=== PATIENT | male | born 1955 | race Caucasian/White ===

== ENCOUNTER 2017-06-30 19:37 | Observation (INO) | payer OTHER, SELFPAY ==
[2017-06-30 19:38] VITALS: BP 143/31; PULSE 71; RESP 20; TEMP 35.7; O2SAT 97; BMI 29.4
[2017-06-30 19:39] VITALS: BMI 29.4
--- NOTE | 2017-06-30 19:42 | CT_ITS ---
CT head/brain wo con HISTORY: Dizziness with nausea and vomiting ITS.REASON: C/O DIZZINESS ORDERING PHYSICIAN: Vinay Valente MD PATIENT AGE: 61 years COMPARISON: None TECHNIQUE: Axial images obtained without contrast. Brain and bone windows reviewed. FINDINGS: No midline shift, mass effect, intracranial hemorrhage, hydrocephalus, or extra-axial fluid collection is evident. The calvarium has an unremarkable appearance. No mastoid effusion. Mucosal thickening involves the ethmoid and maxillary sinuses. A retention cyst is present in right sphenoid sinus at 16 mm. No sinus air-fluid levels.. IMPRESSION: 1. No acute intracranial findings. 2. Sinus disease.
--- NOTE | 2017-06-30 19:42 | XR_ITS ---
XR chest AP HISTORY: ITS.REASON: C/O DIZZINESS ORDERING PHYSICIAN: Vinay Valente MD PATIENT AGE: 61 years COMPARISON: None available FINDINGS: There are low lung volumes. Unremarkable cardiovascular structures. No lobar consolidation or collapse. There is increased density paratracheal region on both sides which may be due to overlying vasculature from the AP and supine positioning. Upright PA and lateral chest may confirm. There is a calcified granuloma in the left lung base. Old right clavicular fracture. IMPRESSION: No acute finding. See above for details
[2017-06-30 20:17] LABS: Basophils % 0.4 % (0.1-2.0); Eosinophils # 0.1 K/mm3 (0.0-0.4); Eosinophils % 1.1 % (0.1-12.0); Hematocrit 38.2 % (42.0-52.0); Hemoglobin 12.9 g/dL (14.1-18.0); Lymphocytes # 2.6 K/mm3 (0.7-4.5); Lymphocytes % 23.2 K/mm3 (10-50); Mean Corpuscular HGB Conc 33.6 g/dL (31.8-35.4); Mean Corpuscular Hemoglobin 28.7 pg (27.0-31.2); Mean Corpuscular Volume 85.2 fl (80-94); Mean Platelet Volume 7.5 fl (7.4-10.4); Monocytes # 0.7 K/mm3 (0.1-1.0); Monocytes % 6.2 % (1.7-9.3); Neutrophils # 7.8 K/mm3 (1.8-7.8); Neutrophils % 69.1 % (37.0-80.0); Platelet Count 238 K/mm3 (142-424); Red Blood Count 4.48 M/mm3 (4.60-6.20); Red Cell Distribution Width 12.8 % (11.5-17.5); White Blood Count 11.3 K/mm3 (4.8-10.8)
[2017-06-30 20:35] LABS: Alanine Aminotransferase 39 U/L (12-78); Albumin Level 3.9 gm/dL (3.4-5.0); Albumin/Globulin Ratio 1.2 (1.1-1.8); Alkaline Phosphatase 61 U/L (46-116); Amylase 36 U/L (25-125); Anion Gap 15.8 mEq/L (5-15); Aspartate Amino Transferase 16 U/L (15-37); Bilirubin,Total 0.3 mg/dL (0.2-1.0); Blood Urea Nitrogen 16 mg/dL (7-18); CKMB Relative Index 2.1 U/L (0-4.0); Calcium 8.7 mg/dL (8.5-10.1); Carbon Dioxide 25 mmol/L (21.0-32.0); Chloride 104 mmol/L (98-107); Creatine Kinase 126 U/L (39-308); Creatine Kinase MB 2.7 mg/ml (0.0-3.6); Creatinine Clearance Estimated 98 mL/min (0-300); Creatinine,Serum 1.05 mg/dL (0.70-1.30); Estimated Glomerular Filt Rate 72 ml/min (>60); GFR (African American) 87 ML/MIN (>60); Globulin 3.2 gm/dl (1.3-3.2); Glucose 125 mg/dL (74-106); Lipase 206 u/L (73-393); Potassium 3.8 mmoL/L (3.5-5.1); Sodium 141 mmol/L (136-145); Total Protein,Serum 7.1 gm/dL (6.4-8.2); Troponin I < 0.02 ng/ml (0.00-0.06)
--- NOTE | 2017-06-30 20:37 | PC.NURSE ---
back from radiology per stretcher
--- NOTE | 2017-06-30 20:57 | HMH.EDDIZZ ---
ED Disposition Clinical Impression: Vertigo Disposition: Admitted as Observation Condition on Discharge: Good Referrals: Vinay Valente MD [Primary Care Provider] - - Critical Care Critical Care Time: No Attestation: On 06/30/17, the high probability of a clinically significant, sudden or life threatening deterioration of the following system(s) required my full and direct attention, intervention and personal management. The time I documented below is in addition to time spent performing reported procedures but includes the following listed in this critical care notation. Medical Decision Making - Medical Records Medical records reviewed: Yes: I reviewed the patient's medical records. Vital Signs: 06/30/17 19:38 Temperature 96.2 F L Temperature Source Temporal Artery Scan Pulse Rate [Right Brachial] 71 Respiratory Rate 20 Blood Pressure [Right Arm] 143/31 Blood Pressure Mean [Right Arm] 68 Blood Pressure Source [Right Arm] Automatic Cuff Blood Pressure Position [Right Arm] Supine 02 Sat by Pulse Oximetry 97 Oxygen Delivery Method Room Air - Lab Data Lab Results 06/30/17 19:55: WBC 11.3 H, RBC 4.48 L, Hgb 12.9 L, Hct 38.2 L, MCV 85.2, MCH 28.7, MCHC 33.6, RDW 12.8, Plt Count 238, MPV 7.5, Neut % (Auto) 69.1, Lymph % (Auto) 23.2, [place] % (Auto) 6.2, Eos % (Auto) 1.1, Baso % (Auto) 0.4, Neut # (Auto) 7.8, Lymph # (Auto) 2.6, [place] # (Auto) 0.7, Eos # (Auto) 0.1, Baso # (Auto) 0.0 06/30/17 19:55: Sodium 141, Potassium 3.8, Chloride 104, Carbon Dioxide 25, Anion Gap 15.8 H, BUN 16, Creatinine 1.05, Estimated Creat Clear 98, Estimated GFR 72, Est GFR ( Amer) 87, Glucose 125 H, Calcium 8.7, Total Bilirubin 0.3, AST 16, ALT 39, Alkaline Phosphatase 61, Total Creatine Kinase 126, CK-MB (CK-2) 2.7, CK-MB (CK-2) Rel Index 2.1, Troponin I < 0.02, Total Protein 7.1, Albumin 3.9, Globulin 3.2, Albumin/Globulin Ratio 1.2, Amylase 36, Lipase 206 06/30/17 20:05: Influenza Type A Ag Negative, Influenza Type B Ag Negative Result diagrams: 06/30/17 19:55 06/30/17 19:55 Orders (Tests/Meds): ED MEDICATIONS Generic Name Dose Route Start Last Admin Trade Name Freq PRN Reason Stop Dose Admin Sodium Chloride 1,000 mls @ 999 mls/hr 06/30/17 21:00 06/30/17 20:53 Sod Chloride 0.9% 1000ml Bag IV 06/30/17 22:00 999 mls/hr .Q1H1M VALERIA Administration Discontinued Medications Generic Name Dose Route Start Last Admin Trade Name Freq PRN Reason Stop Dose Admin Promethazine HCl 12.5 mg 06/30/17 19:59 06/30/17 20:05 Phenergan 25mg/Ml 1ml Vial IV 06/30/17 20:00 12.5 mg ONCE ONE Administration Sodium Chloride 25 ml 06/30/17 19:59 06/30/17 20:05 Sod Chloride 0.9% 25ml Bag IV 06/30/17 20:00 25 ml ONCE ONE Administration ORDERS Category Date Time Status CT head/brain wo con Stat Cat Scan 06/30/17 19:42 Taken XR chest AP Stat Exams 06/30/17 19:42 Taken ECG Request by /Hanna Stat Y 06/30/17 19:42 Ordered - Radiology Data #1 Image(s): Chest Image Reviewed: Yes I reviewed the patient's radiology image Preliminary Findings: Abnormal (nonspecific) - CT Data CT Scan: Head Time Received: 21:[address] Reviewed: Yes: I have viewed the radiologist's interpretation Preliminary Findings: Normal/NAD - ECG Data Tracing #1 I reviewed this ECG and interpreted as documented below: Arrhythmias present: other Ischemic changes: non-specific ST-T wave changes (inverted p wave ) - Andrea Inquiry Pt receiving controlled substance: No Dizzy HPI - General Chief Complaint: Dizziness Stated Complaint: DIZZINESS AND VOMITING Time Seen by Provider: 06/30/17 20:57 Mode of Arrival: EMS Source of Information: Patient, Spouse, Medical Record Limitations: No Limitations Description of Symptoms (Recalled from ER Triage Doc. by RN): VOFOUND LYING FLAT IN FIELD AFTER FEEDING COWS ANDPUSHING JOSE HAY ROLL. UNABLE TO GET UP. C/O DIZZINESS AND NAUSEA AND VOMITING - History of Pres
--- NOTE | 2017-06-30 21:00 | ED_ITS ---
ED Disposition Clinical Impression: Vertigo Disposition: Admitted as Observation Condition on Discharge: Good Referrals: Vinay Valente MD [Primary Care Provider] - - Critical Care Critical Care Time: No Attestation: On 06/30/17, the high probability of a clinically significant, sudden or life threatening deterioration of the following system(s) required my full and direct attention, intervention and personal management. The time I documented below is in addition to time spent performing reported procedures but includes the following listed in this critical care notation. Medical Decision Making - Medical Records Medical records reviewed: Yes: I reviewed the patient's medical records. Vital Signs: 06/30/17 19:38 Temperature 96.2 F L Temperature Source Temporal Artery Scan Pulse Rate [Right Brachial] 71 Respiratory Rate 20 Blood Pressure [Right Arm] 143/31 Blood Pressure Mean [Right Arm] 68 Blood Pressure Source [Right Arm] Automatic Cuff Blood Pressure Position [Right Arm] Supine 02 Sat by Pulse Oximetry 97 Oxygen Delivery Method Room Air - Lab Data Lab Results 06/30/17 19:55: WBC 11.3 H, RBC 4.48 L, Hgb 12.9 L, Hct 38.2 L, MCV 85.2, MCH 28.7, MCHC 33.6, RDW 12.8, Plt Count 238, MPV 7.5, Neut % (Auto) 69.1, Lymph % ( Auto) 23.2, [place] % (Auto) 6.2, Eos % (Auto) 1.1, Baso % (Auto) 0.4, Neut # (Auto ) 7.8, Lymph # (Auto) 2.6, [place] # (Auto) 0.7, Eos # (Auto) 0.1, Baso # (Auto) 0.0 06/30/17 19:55: Sodium 141, Potassium 3.8, Chloride 104, Carbon Dioxide 25, Anion Gap 15.8 H, BUN 16, Creatinine 1.05, Estimated Creat Clear 98, Estimated GFR 72, Est GFR ( Amer) 87, Glucose 125 H, Calcium 8.7, Total Bilirubin 0.3, AST 16, ALT 39, Alkaline Phosphatase 61, Total Creatine Kinase 126, CK-MB ( CK-2) 2.7, CK-MB (CK-2) Rel Index 2.1, Troponin I < 0.02, Total Protein 7.1, Albumin 3.9, Globulin 3.2, Albumin/Globulin Ratio 1.2, Amylase 36, Lipase 206 06/30/17 20:05: Influenza Type A Ag Negative, Influenza Type B Ag Negative Result diagrams: 06/30/17 19:55 06/30/17 19:55 Orders (Tests/Meds): ED MEDICATIONS Generic Name Dose Route Start Last Admin Trade Name Freq PRN Reason Stop Dose Admin Sodium Chloride 1,000 mls @ 999 mls/hr 06/30/17 21:00 06/30/17 20:53 Sod Chloride 0.9% 1000ml Bag IV 06/30/17 22:00 999 mls/hr .Q1H1M VALERIA Administration Discontinued Medications Generic Name Dose Route Start Last Admin Trade Name Freq PRN Reason Stop Dose Admin Promethazine HCl 12.5 mg 06/30/17 19:59 06/30/17 20:05 Phenergan 25mg/Ml 1ml Vial IV 06/30/17 20:00 12.5 mg ONCE ONE Administration Sodium Chloride 25 ml 06/30/17 19:59 06/30/17 20:05 Sod Chloride 0.9% 25ml Bag IV 06/30/17 20:00 25 ml ONCE ONE Administration ORDERS Category Date Time Status CT head/brain wo con Stat Cat Scan 06/30/17 19:42 Taken XR chest AP Stat Exams 06/30/17 19:42 Taken ECG Request by /Hanna Stat Y 06/30/17 19:42 Ordered - Radiology Data #1 Image(s): Chest Image Reviewed: Yes I reviewed the patient's radiology image Preliminary Findings: Abnormal (nonspecific) - CT Data CT Scan: Head Time Received: 21:[address] Reviewed: Yes: I have viewed the radiologist's interpretation Preliminary Findings: Normal/NAD - ECG Data *
[2017-06-30 21:19] VITALS: BP 137/94; PULSE 64; RESP 18; O2SAT 99
[2017-06-30 21:41] VITALS: O2SAT 99
[2017-06-30 21:42] LABS: Microscopic, Urine URINE MICROSCOPIC (MICROSCOPIC)
[2017-06-30 21:43] LABS: Appearance,Urine CLEAR (Clear); Bilirubin,Urine Negative (Negative); Blood, Urine Negative (Negative); Color,Urine YELLOW (Yellow); Glucose,Urine (UA) Negative (Negative); Ketones,Urine Negative (Negative); Leukocyte Esterase,Urine Negative (Negative); Nitrate,Urine Negative (Negative); Protein,Urine Negative (Negative); Urobilinogen,Urine 0.2 EU/dl (0.2)
[2017-06-30 21:50] VITALS: BP 138/77; PULSE 66; RESP 18; TEMP 36.3; O2SAT 96; BMI 29.5
[2017-06-30 22:01] LABS: T4 (Thyroxine) 6.1 ug/dl (4.7-13.3); Thyroid Stimulating Hormone 3.53 uIU/ml (0.358-3.740)
[2017-06-30 22:05] VITALS: PULSE 70
[2017-06-30 22:28] LABS: Bacteria,Urine Trace /lpf; Mucus,Urine 3+ /lpf; Squamous Epithelial Cell,Urine Occasional #/hpf (0-5)
[2017-06-30 23:27] LABS: Troponin I < 0.02 ng/ml (0.00-0.06)
[2017-07-01] VITALS: BP 108/70; PULSE 60; PULSE 68; RESP 18; TEMP 36.7; O2SAT 99
[2017-07-01 04:00] VITALS: BP 126/82; PULSE 80; PULSE 91; RESP 18; TEMP 36.7; O2SAT 98
[2017-07-01 06:43] LABS: Basophils % 0.4 % (0.1-2.0); Eosinophils # 0.1 K/mm3 (0.0-0.4); Eosinophils % 1.1 % (0.1-12.0); Hematocrit 38.5 % (42.0-52.0); Hemoglobin 13.2 g/dL (14.1-18.0); Lymphocytes # 3.3 K/mm3 (0.7-4.5); Lymphocytes % 29.3 K/mm3 (10-50); Mean Corpuscular HGB Conc 34.2 g/dL (31.8-35.4); Mean Corpuscular Hemoglobin 29.1 pg (27.0-31.2); Mean Corpuscular Volume 85.2 fl (80-94); Mean Platelet Volume 7.5 fl (7.4-10.4); Monocytes # 0.6 K/mm3 (0.1-1.0); Monocytes % 5.3 % (1.7-9.3); Neutrophils # 7.3 K/mm3 (1.8-7.8); Platelet Count 233 K/mm3 (142-424); Red Blood Count 4.52 M/mm3 (4.60-6.20); Red Cell Distribution Width 12.8 % (11.5-17.5); White Blood Count 11.3 K/mm3 (4.8-10.8)
--- NOTE | 2017-07-01 06:59 | PC.NURSE ---
NO COMPLAINTS STATED. A&OX3 BUT AGITATION NOTED ON ARRIVAL TO UNIT. PT WOULD STATE I AM JUST GOING TO LEAVE. I AM READY TO GO HOME. WHEN NURSING STAFF WOULD PROVIDE PT WITH CARE. THE STATED HE USUALLY GOES TO BED AROUND 9. DURING ADMISSION, PT STATED I HAVE TO PEE. RN INSTRUCTED IT WAS BEST TO USE URINAL OR BEDSIDE COMMODE R/T C/O DIZZINESS, PT STATED I DO NOT CARE, I AM GOING TO THE BATHROOM, NOW LEAVE ME ALONE. NURSING STAFF AND FAMILY FOLLOWED PT INTO BATHROOM. ON AMBULATION PT NOTED UNSTEADY ON FEET AND SWAYING WHILE TRYING TO STAND TO URINATE. STAFF AND ASSISTED PT BACK TO BED AND RN REINFORCED PT SAFETY AND TO USE URINAL/BSC FOR TOILETING. WAS ALSO INSTRUCTED TO COMPLY WITH NOTIFYING STAFF IF ATTEMPTS TO GET OOB WERE MADE, INDICATED UNDERSTANDING. WHILE ASSESSING PT, PT WAS INSTRUCTED TO OPEN EYES TO ASSESS PERRLA, RN ASKED PT 3 TIMES TO OPEN EYES AND PT KEPT THEM CLOSED. RN STATED IT IS IMPORTANT THAT I ASSESS YOUR EYES BECAUSE YOU ARE HERE FOR NEURO PROBLEMS AND THAT IS PART OF A NEURO ASSESSMENT. PT WOULD NOT FULLY OPEN EYES SO RN ASSISTED WITH OPENING EYES ENOUGH TO DO AN APPROPIATE ASSESSEMENT. PT USED URINAL TO VOID FOR REMAINDER OF SHIFT AND DID NOT ATTEMPT TO GET OOB W/O STAFF ASSISTANCE. NSR NOTED PER CADI[facility]. VSS. WILL CONTINUE TO MONITOR.
--- NOTE | 2017-07-01 07:03 | CA_ITS ---
PROCEDURE: 2-D echo Doppler INDICATIONS FOR THE TEST: Chest pain COPD Heart Murmur Tobacco Smoking Palpitations Fatigue Syncope Edema Hypertension Diabetes Mellitus Rheumatic Fever SOB GALINDO ObesityXHyperlipidemiaX Family History HD Additional History VERTIGO,DIZZINESS PATIENT INFORMATION HEIGHT: 70 WEIGHT:205 GENDER: Male B/P:110/70 2-D/M-MODE INTERPRETATION: 2-D MEASUREMENTS OBSERVED VALUES IN CMS Right Ventricular Dimension (RVDd) 2.5 Interventricular Septum (Thickness)(IVsd) 1.0 Left Ventricular Internal Dimensions(LVIDd) 4.5 Left Ventricular Posterior Wall (Thickness)(LVPWd) 1.0 Aortic Root 3.7 Aortic Cusp Separation 1.0 Left Atrial Dimensions (LAD) 2.4 2D 1. Left atrium is upper limit of the normal size, left ventricle is normal size, there appears to be mild qualitative concentric left ventricular hypertrophy, visually estimated ejection fraction of 55% with no obvious regional wall motion abnormality. 2. The right atrium is normal size, right ventricle is qualitatively mildly enlarged with normal contractility. 3. The aortic valve is thickened and calcified leaflet continue to display mobility. 4. The mitral and tricuspid valves are grossly normal. 5. The pulmonic valve is poorly visualized. 6. No significant pericardial effusion noted. DOPPLER INTERROGATION: Doppler interrogation of the aortic, mitral and tricuspid valve reveals presence of mild mitral and tricuspid regurgitation, calculated right ventricular systolic pressure is 32 mmHg, aortic outflow velocities mildly increased does not represent significant aortic stenosis, there is no aortic insufficiency. Diastolic parameters are inconclusive CONCLUSION: 1. Normal left ventricular size, mild qualitative concentric left ventricular hypertrophy, visually estimated ejection fraction 55% with no obvious regional wall motion abnormality, diastolic parameters are inconclusive. 2. Thickened and calcified aortic valve without Doppler evidence of significant aortic stenosis aortic insufficiency. 3. Mild mitral and tricuspid regurgitation, calculated right ventricular systolic pressure is 32 mmHg consistent with mild pulmonary hypertension. 4. No significant pericardial effusion noted.
[2017-07-01 07:04] LABS: Anion Gap 13.9 mEq/L (5-15); Blood Urea Nitrogen 14 mg/dL (7-18); Carbon Dioxide 25 mmol/L (21.0-32.0); Chloride 107 mmol/L (98-107); Chol/HDL Ratio 5.2 (1-3.5); Cholesterol 203 mg/dL (140-200); Creatinine Clearance Estimated 106 mL/min (0-300); Creatinine,Serum 0.98 mg/dL (0.70-1.30); Estimated Glomerular Filt Rate 78 ml/min (>60); GFR (African American) 94 ML/MIN (>60); Glucose 103 mg/dL (74-106); HDL Cholesterol 39 mg/dL (27-67); LDL Cholesterol 124 mg/dL (0-130); Potassium 3.9 mmoL/L (3.5-5.1); Sodium 142 mmol/L (136-145); Triglycerides 200 mg/dL (30-200); VLDL Cholesterol 40 mg/dL (0-40)
--- NOTE | 2017-07-01 07:17 | HMH.PHAVTE ---
[facility] [place] Pharmacy VTE Monitoring - Patient Demographics Admission date: 06/30/17 Report Date: 07/01/17 Time: 07:17 Allergies/Adverse Reactions: Patient Allergies No Known Allergies Allergy (Verified 06/30/17 13:29) Height: 1.78 m Weight: 93.416 kg Patient Problems: Current Active Problems Vertigo (Acute) - VTE Risk Labs: VTE Related Lab Results Hgb 13.2 g/dL (14.1-18.0) L 07/01/17 06:03 Hct 38.5 % (42.0-52.0) L 07/01/17 06:03 Plt Count 233 K/mm3 (142-424) 07/01/17 06:03 BUN 14 mg/dL (7-18) 07/01/17 06:03 Creatinine 0.98 mg/dL (0.70-1.30) 07/01/17 06:03 Estimated Creat Clear 106 mL/min (0-300) 07/01/17 06:03 VTE Score: 3 VTE Risk Level: Low Risk - Prophylaxis VTE Prophylaxis Ordered?: Yes Types of VTE Prophylaxis: TEDS Knee High Location of Applied Device: Bilateral Lower Extremeties - VTE Diagnosis Confirmed Treatment or plan recommended: Continue Current Treatment
--- NOTE | 2017-07-01 07:35 | PC.NURSE ---
REPORT GIVEN TO Margie SMILEY W/C
[2017-07-01 08:00] VITALS: PULSE 70
--- NOTE | 2017-07-01 08:12 | HMH.CARDCON2 ---
History of Present Illness Consult date: 07/01/17 Requesting physician: Vinay Valente (Consult for dizziness) Chief complaint: Dizziness History of present illness: 61 yo WM with history of hypercholesterolemia, remote tobacco use and FH of CAD (mother and sister) was unrolling a bale of hay when he developed sudden dizziness to the point of needing to lie down. Denies any chest pain, pressure, tightness or palpitations. No recent fever, chills, vomiting or diarrhea. He did experience nausea and vomiting due to the recurrent dizziness last night. He denies any near syncope or syncope symptoms. He came to the ER for evaluation and was admitted. Troponins have returned normal. EKG shows ectopic atrial vs junctional escape otherwise unremarkable. Cardiology consulted for evaluation. Review of Systems - Review of Systems Review of systems:: pertinent systems reviewed and negative unless documented below - *Cardiovascular Denies chest pain with activity, Denies shortness of breath with activity - *Respiratory Denies shortness of breath, Denies shortness of breath with activity - *Gastrointestinal Reports nausea - *Genitourinary Denies blood in urine - *Musculoskeletal Denies joint pain - *Neurologic Reports dizziness, Denies seizure-like activity [facility] History Medical History: Reports:: Heart Murmur, Hyperlipidemia Denies:: Cancer, Diabetes Mellitus Type 1, Diabetes Mellitus Type 2, MRSA Other Surgeries: Yes: Appendectomy, Colonoscopy, Other (Liver Biopsy, POLYPS REMOVED) Amputation: No Fractures: No - *Social History Educational Level: Attended High School Smoking Status: Never smoker Tobacco Type: cigarettes Alcohol Intake: never Alcohol Intake Frequency:: holidays/special occasions only Occupational Status: employed Household Members: significant other - Psychiatric History Expresses thoughts of harming self/others: None Suicide Plan Description: No Plan *Family Hx:: Stroke, Hypertension, Diabetes Meds Home Medications Medication Instructions Recorded Confirmed Type lovastatin 40 mg tablet 40 mg PO HS 06/14/17 07/01/17 History Allergies Allergy/AdvReac Type Severity Reaction Status Date / Time No Known Allergies Allergy Verified 06/30/17 13:29 Exam Vital signs and Labs for Last 24 Hours: Temp Pulse Resp BP Pulse Ox 98.1 F 91 H 18 126/82 98 07/01/17 04:00 07/01/17 04:00 07/01/17 04:00 07/01/17 04:00 07/01/17 04:00 Laboratory Results - last 24 hr 06/30/17 23:00: Troponin I < 0.02 07/01/17 06:03: WBC 11.3 H, RBC 4.52 L, Hgb 13.2 L, Hct 38.5 L, MCV 85.2, MCH 29.1, MCHC 34.2, RDW 12.8, Plt Count 233, MPV 7.5, Neut % (Auto) 64.0, Lymph % (Auto) 29.3, [place] % (Auto) 5.3, Eos % (Auto) 1.1, Baso % (Auto) 0.4, Neut # (Auto) 7.3, Lymph # (Auto) 3.3, [place] # (Auto) 0.6, Eos # (Auto) 0.1, Baso # (Auto) 0.0 07/01/17 06:03: Sodium 142, Potassium 3.9, Chloride 107, Carbon Dioxide 25, Anion Gap 13.9, BUN 14, Creatinine 0.98, Estimated Creat Clear 106, Estimated GFR 78, Est GFR ( Amer) 94, Glucose 103, Magnesium 2.0, Triglycerides 200, Cholesterol 203 H, LDL Cholesterol 124, VLDL Cholesterol 40, HDL Cholesterol 39, Cholesterol/HDL Ratio 5.2 H I & O for Last 24 hours: Intake & Output 06/28/17 06/29/17 06/30/17 07/01/17 11:59 11:59 11:59 11:59 Intake Total 503 / 503 Output Total 450 / 450 Balance 53 / 53 Weight 205 lb 15.162 oz - *Routine Neck Exam Absent: JVD, carotid bruit - *Routine Respiratory Exam Present: CTA bilaterally - *Routine Cardiovascular Exam Present: RRR, murmur. Absent: gallop, rubs - *Routine Abdominal Exam Present: soft. Absent: tenderness - *Routine Extremities Exam Absent: edema - *Routine Neurological Exam Present: moving all extremities Results 07/01/17 06:03 07/01/17 06:03 Cardiac Enzymes 06/30/17 Range/Units 23:00 Troponin I < 0.02 (0.00-0.06) ng/ml Lipids 07/01/17 Range/Units
[2017-07-01 08:17] VITALS: O2SAT 98
--- NOTE | 2017-07-01 08:17 | P.CONS_ITS ---
History of Present Illness Consult date: 07/01/17 Requesting physician: Vinay Valente (Consult for dizziness) Chief complaint: Dizziness History of present illness: 61 yo WM with history of hypercholesterolemia, remote tobacco use and FH of CAD (mother and sister) was unrolling a bale of hay when he developed sudden dizziness to the point of needing to lie down. Denies any chest pain, pressure, tightness or palpitations. No recent fever, chills, vomiting or diarrhea. He did experience nausea and vomiting due to the recurrent dizziness last night. He denies any near syncope or syncope symptoms. He came to the ER for evaluation and was admitted. Troponins have returned normal. EKG shows ectopic atrial vs junctional escape otherwise unremarkable. Cardiology consulted for evaluation. Review of Systems - Review of Systems Review of systems:: pertinent systems reviewed and negative unless documented below - *Cardiovascular Denies chest pain with activity, Denies shortness of breath with activity - *Respiratory Denies shortness of breath, Denies shortness of breath with activity - *Gastrointestinal Reports nausea - *Genitourinary Denies blood in urine - *Musculoskeletal Denies joint pain - *Neurologic Reports dizziness, Denies seizure-like activity [facility] History Medical History: Reports:: Heart Murmur, Hyperlipidemia Denies:: Cancer, Diabetes Mellitus Type 1, Diabetes Mellitus Type 2, MRSA Other Surgeries: Yes: Appendectomy, Colonoscopy, Other (Liver Biopsy, POLYPS REMOVED) Amputation: No Fractures: No - *Social History Educational Level: Attended High School Smoking Status: Never smoker Tobacco Type: cigarettes Alcohol Intake: never Alcohol Intake Frequency:: holidays/special occasions only Occupational Status: employed Household Members: significant other - Psychiatric History Expresses thoughts of harming self/others: None Suicide Plan Description: No Plan *Family Hx:: Stroke, Hypertension, Diabetes Meds Home Medications Medication Instructions Recorded Confirmed Type lovastatin 40 mg tablet 40 mg PO HS 06/14/17 07/01/17 History Allergies Allergy/AdvReac Type Severity Reaction Status Date / Time No Known Allergies Allergy Verified 06/30/17 13:29 Exam Vital signs and Labs for Last 24 Hours: Temp Pulse Resp BP Pulse Ox 98.1 F 91 H 18 126/82 98 07/01/17 04:00 07/01/17 04:00 07/01/17 04:00 07/01/17 04:00 07/01/17 04:00 Laboratory Results - last 24 hr 06/30/17 23:00: Troponin I < 0.02 07/01/17 06:03: WBC 11.3 H, RBC 4.52 L, Hgb 13.2 L, Hct 38.5 L, MCV 85.2, MCH 29.1, MCHC 34.2, RDW 12.8, Plt Count 233, MPV 7.5, Neut % (Auto) 64.0, Lymph % ( Auto) 29.3, [place] % (Auto) 5.3, Eos % (Auto) 1.1, Baso % (Auto) 0.4, Neut # (Auto ) 7.3, Lymph # (Auto) 3.3, [place] # (Auto) 0.6, Eos # (Auto) 0.1, Baso # (Auto) 0.0 07/01/17 06:03: Sodium 142, Potassium 3.9, Chloride 107, Carbon Dioxide 25, Anion Gap 13.9, BUN 14, Creatinine 0.98, Estimated Creat Clear 106, Estimated GFR 78, Est GFR ( Amer) 94, Glucose 103, Magnesium 2.0, Triglycerides 200 , Cholesterol 203 H, LDL Cholesterol 124, VLDL Cholesterol 40, HDL Cholesterol 39, Cholesterol/HDL Ratio 5.2 H I & O for Last 24 hours: Intake & Output 06/28/17 06/29/17 06/30/17 07/01/17 11:59 11:59 11:59 11:59 Intake Total 503 / 503 Output Total 450 / 450 Balance 53 / 53 Weight 20
[2017-07-01 08:28] VITALS: BP 147/87; PULSE 71; RESP 18; TEMP 36.7; O2SAT 95
--- NOTE | 2017-07-01 09:03 | HMH.HPDC ---
General - General Admission date: 06/30/17 Discharge date: 07/01/17 *Admission Date: 06/30/17 *Chief complaint: dizzy *History of present illness: 61 yo WM with history of hypercholesterolemia, remote tobacco use and FH of CAD (mother and sister) was unrolling a bale of hay when he developed sudden dizziness to the point of needing to lie down. Denies any chest pain, pressure, tightness or palpitations. No recent fever, chills, vomiting or diarrhea. He did experience nausea and vomiting due to the recurrent dizziness last night. He denies any near syncope or syncope symptoms. He came to the ER for evaluation and was admitted. Troponins have returned normal. EKG shows ectopic atrial vs junctional escape otherwise unremarkable. Cardiology consulted for evaluation. [facility] History I have reviewed the patient's past medical history: Yes Medical History: Reports:: Heart Murmur, Hyperlipidemia Denies:: Cancer, Diabetes Mellitus Type 1, Diabetes Mellitus Type 2, MRSA Other Surgeries: Yes: Appendectomy, Colonoscopy, Other (Liver Biopsy, POLYPS REMOVED) Amputation: No Fractures: No - *Social History Educational Level: Attended High School Smoking Status: Never smoker Tobacco Type: cigarettes Alcohol Intake: never Alcohol Intake Frequency:: holidays/special occasions only Occupational Status: employed Household Members: significant other - Psychiatric History Expresses thoughts of harming self/others: None Suicide Plan Description: No Plan *Family Hx:: Stroke, Hypertension, Diabetes Review of Systems - Constitutional Denies body ache(s) - Eyes Denies blind spots, Denies blurry vision, Denies change in vision - ENT Reports dizziness, Denies abnormal hearing - *Cardiovascular Denies chest pain, Denies chest pain at rest, Denies chest pain with activity, Denies generalized swelling, Denies leg swelling - *Respiratory Denies change in phlegm color, Denies chest congestion, Denies cough - *Gastrointestinal Denies abdominal pain - *Genitourinary Denies difficulty urinating - *Musculoskeletal Denies abnormal walking - Integumentary/Breasts Denies rash - *Neurologic Reports dizziness, Denies seizure-like activity - Psychiatric Denies confusion, Denies depression, Denies difficulty concentrating, Denies sensing things others do not sense - Endocrine Denies cold intolerance - Hematologic/Lymphatic Denies easy bleeding - Allergic/Immunologic Denies GI upset with certain foods Exam Vital signs and Labs for Last 24 Hours: Temp Pulse Resp BP Pulse Ox 98.1 F 71 18 147/87 95 07/01/17 08:28 07/01/17 08:28 07/01/17 08:28 07/01/17 08:28 07/01/17 08:28 Laboratory Results - last 24 hr 06/30/17 23:00: Troponin I < 0.02 07/01/17 06:03: WBC 11.3 H, RBC 4.52 L, Hgb 13.2 L, Hct 38.5 L, MCV 85.2, MCH 29.1, MCHC 34.2, RDW 12.8, Plt Count 233, MPV 7.5, Neut % (Auto) 64.0, Lymph % (Auto) 29.3, [place] % (Auto) 5.3, Eos % (Auto) 1.1, Baso % (Auto) 0.4, Neut # (Auto) 7.3, Lymph # (Auto) 3.3, [place] # (Auto) 0.6, Eos # (Auto) 0.1, Baso # (Auto) 0.0 07/01/17 06:03: Sodium 142, Potassium 3.9, Chloride 107, Carbon Dioxide 25, Anion Gap 13.9, BUN 14, Creatinine 0.98, Estimated Creat Clear 106, Estimated GFR 78, Est GFR ( Amer) 94, Glucose 103, Magnesium 2.0, Triglycerides 200, Cholesterol 203 H, LDL Cholesterol 124, VLDL Cholesterol 40, HDL Cholesterol 39, Cholesterol/HDL Ratio 5.2 H I & O for Last 24 hours: Intake & Output 06/28/17 06/29/17 06/30/17 07/01/17 11:59 11:59 11:59 11:59 Intake Total 503 / 503 Output Total 775 / 775 Balance -272 / -272 Weight 205 lb 15.162 oz - Constitutional no acute distress - *Routine HEENT Exam Head: Present: normocephalic Eye: Present: PERRL ENT: Present: mucous membranes moist - *Routine Neck Exam Present: supple, full ROM - *Routine Respiratory Exam Present: CTA bilaterally - *Routine Cardiovascular Exam Present: RRR - *Routine Abdominal
--- NOTE | 2017-07-01 09:06 | P.SWB_ITS ---
General - General Admission date: 06/30/17 Discharge date: 07/01/17 *Admission Date: 06/30/17 *Chief complaint: dizzy *History of present illness: 61 yo WM with history of hypercholesterolemia, remote tobacco use and FH of CAD (mother and sister) was unrolling a bale of hay when he developed sudden dizziness to the point of needing to lie down. Denies any chest pain, pressure, tightness or palpitations. No recent fever, chills, vomiting or diarrhea. He did experience nausea and vomiting due to the recurrent dizziness last night. He denies any near syncope or syncope symptoms. He came to the ER for evaluation and was admitted. Troponins have returned normal. EKG shows ectopic atrial vs junctional escape otherwise unremarkable. Cardiology consulted for evaluation. [facility] History I have reviewed the patient's past medical history: Yes Medical History: Reports:: Heart Murmur, Hyperlipidemia Denies:: Cancer, Diabetes Mellitus Type 1, Diabetes Mellitus Type 2, MRSA Other Surgeries: Yes: Appendectomy, Colonoscopy, Other (Liver Biopsy, POLYPS REMOVED) Amputation: No Fractures: No - *Social History Educational Level: Attended High School Smoking Status: Never smoker Tobacco Type: cigarettes Alcohol Intake: never Alcohol Intake Frequency:: holidays/special occasions only Occupational Status: employed Household Members: significant other - Psychiatric History Expresses thoughts of harming self/others: None Suicide Plan Description: No Plan *Family Hx:: Stroke, Hypertension, Diabetes Review of Systems - Constitutional Denies body ache(s) - Eyes Denies blind spots, Denies blurry vision, Denies change in vision - ENT Reports dizziness, Denies abnormal hearing - *Cardiovascular Denies chest pain, Denies chest pain at rest, Denies chest pain with activity, Denies generalized swelling, Denies leg swelling - *Respiratory Denies change in phlegm color, Denies chest congestion, Denies cough - *Gastrointestinal Denies abdominal pain - *Genitourinary Denies difficulty urinating - *Musculoskeletal Denies abnormal walking - Integumentary/Breasts Denies rash - *Neurologic Reports dizziness, Denies seizure-like activity - Psychiatric Denies confusion, Denies depression, Denies difficulty concentrating, Denies sensing things others do not sense - Endocrine Denies cold intolerance - Hematologic/Lymphatic Denies easy bleeding - Allergic/Immunologic Denies GI upset with certain foods Exam Vital signs and Labs for Last 24 Hours: Temp Pulse Resp BP Pulse Ox 98.1 F 71 18 147/87 95 07/01/17 08:28 07/01/17 08:28 07/01/17 08:28 07/01/17 08:28 07/01/17 08:28 Laboratory Results - last 24 hr 06/30/17 23:00: Troponin I < 0.02 07/01/17 06:03: WBC 11.3 H, RBC 4.52 L, Hgb 13.2 L, Hct 38.5 L, MCV 85.2, MCH 29.1, MCHC 34.2, RDW 12.8, Plt Count 233, MPV 7.5, Neut % (Auto) 64.0, Lymph % ( Auto) 29.3, [place] % (Auto) 5.3, Eos % (Auto) 1.1, Baso % (Auto) 0.4, Neut # (Auto ) 7.3, Lymph # (Auto) 3.3, [place] # (Auto) 0.6, Eos # (Auto) 0.1, Baso # (Auto) 0.0 07/01/17 06:03: Sodium 142, Potassium 3.9, Chloride 107, Carbon Dioxide 25, Anion Gap 13.9, BUN 14, Creatinine 0.98, Estimated Creat Clear 106, Estimated GFR 78, Est GFR ( Amer) 94, Glucose 103, Magnesium 2.0, Triglycerides 200 , Cholesterol 203 H, LDL Cholesterol 124, VLDL Cholesterol 40, HDL Cholesterol 39, Cholesterol/HDL Ratio 5.2 H I & O for Last 24 hours: Intake & Output 01
--- NOTE | 2017-07-01 21:54 | CI_ITS ---
Cerebrovascular Exam Indications: 780.4 Dizziness and giddiness. IMPRESSIONS 1. The bilateral vertebral arteries are patent with normal antegrade flow. 2. Study suggests less than 20% stenosis involving the right internal carotid artery and the left internal carotid artery. Carotid duplex study. Complete study and Doppler flow study including spectral analysis, color and jang scale imaging. Height: Height: 177.8cm. Height: 70in. Weight: Weight: 93kg. Weight: 204.6lb. Body mass index: BMI: 29.4kg/m^2. Body surface area: BSA: 2.17m^2. Location: Bedside. Patient status: Inpatient. Tables: Arterial flow: + +--------+--------+ Location V sys V ed + +--------+--------+ Right CCA - proximal 80.1cm/s 31.4cm/s + +--------+--------+ Right CCA - distal 68.4cm/s 22.8cm/s + +--------+--------+ Right ECA 57.4cm/s -------- + +--------+--------+ Right ICA - proximal 63.6cm/s 29.1cm/s + +--------+--------+ Right ICA - mid 84.9cm/s 35.4cm/s + +--------+--------+ Right ICA - distal 73.9cm/s 35.4cm/s + +--------+--------+ Right vertebral 30.6cm/s -------- + +--------+--------+ Left CCA - proximal 88cm/s 29.1cm/s + +--------+--------+ Left CCA - distal 91.9cm/s 29.1cm/s + +--------+--------+ Left ECA 98.2cm/s -------- + +--------+--------+ Left ICA - proximal 73.9cm/s 25.1cm/s + +--------+--------+ Left ICA - mid 95.1cm/s 38.5cm/s + +--------+--------+ Left ICA - distal 101cm/s 45.6cm/s + +--------+--------+ Left vertebral 26.7cm/s -------- + +--------+--------+ Velocity ratios: + + + + + + Right, V sys Right, V ed Left, V sys Left, V ed + + + + + + Max ICA/dist CCA 1.24 1.55 1.1 1.57 + + + + + + (Report amended ) Electronically signed by: Raymundo Rueda [id number]
== END 2017-07-01 10:40 | disposition home or self-care (01) ==
LOC: ER 21:19 → 2ND 22:07
PROVIDERS: Admitting Provider Emergency Medicine; Emergency Provider Emergency Medicine; Family Provider Emergency Medicine; PCP Emergency Medicine; Visit Provider Emergency Medicine
DX: R42 Dizziness and giddiness (principal); E78.00 Pure hypercholesterolemia, unspecified; R11.10 Vomiting, unspecified; I49.8 Other specified cardiac arrhythmias; Z87.891 Personal history of nicotine dependence; Z82.49 Family history of ischemic heart disease and other diseases of the circulatory system
CPT/HCPCS: 36415; 70450; 71045; 80048; 80053; 80061; 81001; 82150; 82550; 82553; 83690; 83735; 84436; 84443; 84484; 85025; 87275; 87276; 93005; 93041; 93270; 93306; 93880; 96367; 99284; G0378

== ENCOUNTER → 2017-07-01 10:41 | Outpatient (CLI) | payer OTHER, SELFPAY | PROVIDERS: PCP Emergency Medicine; Visit Provider Internal Medicine | DX: R42 Dizziness and giddiness (principal) | CPT/HCPCS: 93270 ==

== ENCOUNTER → 2017-07-27 07:10 | Outpatient (CLI) | payer OTHER, SELFPAY ==
--- NOTE | 2017-07-27 07:14 | NM_ITS ---
NM angelica perf SPECT rest str CLINICAL INDICATION: Abnormal EKG, high cholesterol, positive family history NM angelica perf SPECT rest str COMPARISON: None available ORDERING PHYSICIAN: Contreras Mccartney MD PATIENT AGE: 61 years DOSE: 10.18 mCi technetium Myoview intravenously at rest followed by 32.1 mCi technetium Myoview at stress. The patient exercised9 minutes and 15 seconds achieving a heart rate 138 bpm. Projected heart rate is 160 bpm. Resting blood pressure is 154/87. Stress blood pressure 180/70. FINDINGS: Ejection fraction is calculated to be 56%. No obvious wall motion abnormalities.. SPECT and polar map images are reviewed. There is slight decrease activity in the inferior wall extending into the apex on the stress images compared to the rest images suggesting mild ischemia. No fixed defects are evident. IMPRESSION: 1. Normal ejection fraction of 56%. 2. Mild ischemic changes in the inferior wall extending into the apex
== END ==
PROVIDERS: Family Provider Emergency Medicine; PCP Emergency Medicine; Visit Provider Internal Medicine Cardiovascular Disease
DX: R94.31 Abnormal electrocardiogram [ECG] [EKG] (principal); E78.5 Hyperlipidemia, unspecified; R42 Dizziness and giddiness; Z82.49 Family history of ischemic heart disease and other diseases of the circulatory system; Z87.891 Personal history of nicotine dependence
CPT/HCPCS: 78452; 93017; A9502

== ENCOUNTER → 2017-07-30 12:33 | Outpatient (CLI) | payer OTHER, SELFPAY ==
--- NOTE | 2017-07-30 13:00 | CT_ITS ---
CT heart w calcium score CLINICAL INDICATION: ITS.REASON: ABN EKG, HLD, EX SMOKER,VERIGO, HX ASHD ORDERING PHYSICIAN: Contreras Mccartney MD PATIENT AGE: 61 years COMPARISON: None FINDINGS: The total coronary artery calcium score is 1631 indicating an extensive plaque burden with very high cardiovascular disease risk IMPRESSION: The total coronary artery calcium score is 1631 indicating an extensive plaque burden with very high cardiovascular disease risk
== END ==
PROVIDERS: Family Provider Emergency Medicine; PCP Emergency Medicine; Visit Provider Internal Medicine Cardiovascular Disease
DX: R94.31 Abnormal electrocardiogram [ECG] [EKG] (principal); E78.5 Hyperlipidemia, unspecified; R42 Dizziness and giddiness; Z82.49 Family history of ischemic heart disease and other diseases of the circulatory system; Z87.891 Personal history of nicotine dependence
CPT/HCPCS: 75571

== ENCOUNTER 2017-08-18 07:24 | Day surgery (SDC) | payer OTHER, SELFPAY ==
[2017-08-18] VITALS (16 sets, daily range): BP systolic 136–166; BP diastolic 79–105; PULSE 56–77; RESP 16; TEMP 36.8; O2SAT 93–96; BMI 30.5; BMI 29.4
--- NOTE | 2017-08-18 | IR_ITS ---
CARDIAC CATHETERIZATION DATE OF CATHETERIZATION:08/18/2017 9:06 AM PROCEDURES: 1. Left heart catheterization 2. Left ventriculogram 3. Selective coronary angiogram 4. Intravascular ultrasound to the proximal LAD 5. Drug-eluting stent deployment to the proximal LAD INDICATION FOR TEST: 1. Coronary artery disease 2. Abnormal Myoview and abnormal calcium score of 1631 3. MLA 3.6 sq mm and the proximal LAD Informed consent was obtained prior to the procedure. COMPLICATIONS: None ESTIMATED BLOOD LOSS: Less than 10 ml. TECHNIQUE: One percent lidocaine used to anesthetize the right anterior aspect of the wrist. The right radial artery was accessed via the Seldinger technique. A 6 Romanian sheath was placed in the right radial artery. 2.5 mg of verapamil, 800 mcg of nitroglycerin and 5000 U Heparin were given through the arterial sheath. The trap catheter was also used to perform left heart catheterization left ventriculogram and selective coronary angiogram. At the end of the diagnostic procedure an InMobiari left guide catheter was used intubate the left main artery. An additional 5000 units of heparin was administered intravenously giving an ACT out of range a BMW wire was placed distally and in intravascular ultrasound probe was advanced. There is an angiographically ambiguous yet very concerning area in the proximal LAD immediately adjacent to a diagonal artery. This appears to be calcified with a flow disturbance along this area. Given its angiographic ambiguity along with the lesion occurring and a bifurcation I felt intravascular ultrasound interrogation would be the most advantageous and clinically descript modality. Intravascular ultrasound probe confirm the angiographic suspicion of a severe lesion creating in MLA of 3.6 sq m at an area where the LAD diameter was approximately 3.7 mm because of this a 3.5 x 15 mm resolute [place] stent was deployed at 16 sunday in the proximal to mid LAD reducing the severe stenosis to 0%. There was some encroachment and jailing of the first diagonal artery however MISTI-3 flow was present therefore no further evaluation or manipulation of the first diagonal artery was undertaken. At the end of the procedure the sheath was removed good hemostasis was achieved using TR banding patient was given 180 mg of Brilinta on the table along with 325 mg of aspirin was transferred to the postop holding area in stable condition. ANGIOGRAPHIC RESULTS: 1. The left main artery normal 2. The left anterior descending artery has very proximal 10% stenoses followed by an angiographically ambiguous calcified lesion immediately adjacent to a first diagonal artery. Remaining LAD has 20 and 30% stenoses. The first diagonal artery has an ostial eccentric calcified cleft creating at least 60% angiographic stenosis. 3. The circumflex artery is nondominant yet still a large caliber vessel with proximal 20% stenoses and a distal 40-50% mostly eccentric stenosis in the proximal large terminal obtuse marginal artery 4. The right coronary artery is a dominant vessel and has proximal and mid vessel 20 and 30% stenoses with a distal 40% stenosis. There are 20% stenoses in the 2 terminal branches 5. The BUSTAMANTE ventriculogram reveals normal 65% 6. The left ventricular end-diastolic pressure 10 mmHg IMPRESSION: 1. Angiographically ambiguous yet suspicious calcified disease in the proximal LAD which was confirmed as being severely stenosed and calcified based on intravascular ultrasound criteria 2. Successful stenting of the proximal LAD severe disease reduced to 0% with 1 drug-eluting stent 3. Persistent disease as described above 4. Normal ejection fraction 5. Normal left ventricular end-diastolic pressure PLAN: 1. Brilinta 90 milligrams twice a day
[2017-08-18 07:56] LABS: Basophils % 0.5 % (0.1-2.0); Eosinophils # 0.2 K/mm3 (0.0-0.4); Eosinophils % 1.7 % (0.1-12.0); Hematocrit 42.6 % (42.0-52.0); Hemoglobin 14.4 g/dL (14.1-18.0); Lymphocytes # 4.1 K/mm3 (0.7-4.5); Mean Corpuscular HGB Conc 33.9 g/dL (31.8-35.4); Mean Corpuscular Hemoglobin 29.2 pg (27.0-31.2); Mean Corpuscular Volume 86.1 fl (80-94); Mean Platelet Volume 7.9 fl (7.4-10.4); Monocytes # 0.5 K/mm3 (0.1-1.0); Monocytes % 5.7 % (1.7-9.3); Neutrophils # 4.1 K/mm3 (1.8-7.8); Platelet Count 242 K/mm3 (142-424); Red Blood Count 4.94 M/mm3 (4.60-6.20); Red Cell Distribution Width 13.1 % (11.5-17.5); White Blood Count 8.9 K/mm3 (4.8-10.8)
[2017-08-18 08:03] LABS: Anion Gap 12.9 mEq/L (5-15); Blood Urea Nitrogen 17 mg/dL (7-18); Carbon Dioxide 26 mmol/L (21.0-32.0); Chloride 106 mmol/L (98-107); Creatinine Clearance Estimated 110 mL/min (0-300); Creatinine,Serum 0.94 mg/dL (0.70-1.30); Estimated Glomerular Filt Rate 82 ml/min (>60); GFR (African American) 99 ML/MIN (>60); Glucose 104 mg/dL (74-106); Potassium 3.9 mmoL/L (3.5-5.1); Sodium 141 mmol/L (136-145)
[2017-08-18 10:43] LABS: CATHL Activated Clotting Time > 400 SEC (74-125)
== END 2017-08-18 13:53 | disposition home or self-care (01) ==
LOC: CATHLAB 07:25
PROVIDERS: Family Provider Emergency Medicine; PCP Emergency Medicine; Visit Provider Internal Medicine
DX: I25.10 Atherosclerotic heart disease of native coronary artery without angina pectoris (principal); I25.84 Coronary atherosclerosis due to calcified coronary lesion; Z82.49 Family history of ischemic heart disease and other diseases of the circulatory system; Z87.891 Personal history of nicotine dependence; R42 Dizziness and giddiness; R93.1 Abnormal findings on diagnostic imaging of heart and coronary circulation
CPT/HCPCS: 80048; 85025; 85347; 92928; 92978; 93458; 99152; 99153; C1725; C1769; C1876; C9600; J1644; Q9967

== ENCOUNTER 2017-09-03 08:53 | Outpatient (RCR) | payer OTHER, SELFPAY | END 2017-11-04 14:59 | disposition home or self-care (01) | LOC: PT 08:53 | PROVIDERS: Family Provider Emergency Medicine; PCP Emergency Medicine; Visit Provider Internal Medicine | DX: Z95.5 Presence of coronary angioplasty implant and graft (principal) | CPT/HCPCS: 93798 ==

== ENCOUNTER → 2018-05-06 09:44 | Outpatient (CLI) | payer OTHER, SELFPAY ==
[2018-05-06 11:47] LABS: Alanine Aminotransferase 41 U/L (12-78); Albumin Level 4.2 gm/dL (3.4-5.0); Alkaline Phosphatase 62 U/L (46-116); Anion Gap 15.2 mEq/L (5-15); Aspartate Amino Transferase 14 U/L (15-37); Bilirubin,Direct 0.1 mg/dL (0.0-0.2); Bilirubin,Indirect 0.5 mg/dL (0.0-0.9); Bilirubin,Total 0.6 mg/dL (0.2-1.0); Blood Urea Nitrogen 18 mg/dL (7-18); Carbon Dioxide 25 mmol/L (21.0-32.0); Chloride 104 mmol/L (98-107); Chol/HDL Ratio 3.6 (1-3.5); Cholesterol 154 mg/dL (140-200); Estimated Glomerular Filt Rate 76 ml/min (>60); GFR (African American) 92 ML/MIN (>60); Glucose 95 mg/dL (74-106); HDL Cholesterol 43 mg/dL (27-67); LDL Cholesterol 78 mg/dL (0-130); Potassium 4.2 mmoL/L (3.5-5.1); Sodium 140 mmol/L (136-145); Total Protein,Serum 7.4 gm/dL (6.4-8.2); Triglycerides 163 mg/dL (30-200); VLDL Cholesterol 33 mg/dL (0-40)
== END ==
PROVIDERS: Urology; Visit Provider Internal Medicine Cardiovascular Disease
DX: I25.10 Atherosclerotic heart disease of native coronary artery without angina pectoris (principal); E78.5 Hyperlipidemia, unspecified
CPT/HCPCS: 36415; 80048; 80061; 80076

== ENCOUNTER → 2018-10-18 13:42 | Outpatient (CLI) | payer BC, SELFPAY ==
[2018-10-18 14:15] LABS: Basophils # 0.1 K/mm3 (0-0.2); Basophils % 0.4 % (0.1-2.0); Eosinophils # 0.1 K/mm3 (0.0-0.4); Eosinophils % 0.6 % (0.1-12.0); Hematocrit 42.1 % (42.0-52.0); Hemoglobin 14.6 g/dL (14.1-18.0); Mean Corpuscular HGB Conc 34.7 g/dL (31.8-35.4); Mean Corpuscular Hemoglobin 30.2 pg (27.0-31.2); Mean Platelet Volume 7.5 fl (7.4-10.4); Monocytes # 0.7 K/mm3 (0.1-1.0); Monocytes % 5.3 % (1.7-9.3); Neutrophils # 8.8 K/mm3 (1.8-7.8); Neutrophils % 69.8 % (37.0-80.0); Platelet Count 232 K/mm3 (142-424); Red Blood Count 4.84 M/mm3 (4.60-6.20); Red Cell Distribution Width 13.2 % (11.5-17.5); White Blood Count 12.6 K/mm3 (4.8-10.8)
[2018-10-18 14:54] LABS: Alanine Aminotransferase 44 U/L (12-78); Albumin Level 4.7 gm/dL (3.4-5.0); Albumin/Globulin Ratio 1.3 (1.1-1.8); Alkaline Phosphatase 69 U/L (46-116); Anion Gap 16.2 mEq/L (5-15); Aspartate Amino Transferase 18 U/L (15-37); Blood Urea Nitrogen 14 mg/dL (7-18); Calcium 9.1 mg/dL (8.5-10.1); Carbon Dioxide 25 mmol/L (21.0-32.0); Chloride 102 mmol/L (98-107); Creatinine,Serum 0.97 mg/dL (0.70-1.30); Estimated Glomerular Filt Rate 79 ml/min (>60); GFR (African American) 95 ML/MIN (>60); Globulin 3.5 gm/dl (1.3-3.2); Glucose 111 mg/dL (74-106); Potassium 4.2 mmoL/L (3.5-5.1); Sodium 139 mmol/L (136-145); Total Protein,Serum 8.2 gm/dL (6.4-8.2)
== END ==
PROVIDERS: Visit Provider Emergency Medicine
DX: I25.10 Atherosclerotic heart disease of native coronary artery without angina pectoris (principal)
CPT/HCPCS: 80053; 85025

== ENCOUNTER → 2018-11-04 12:50 | Outpatient (CLI) | payer BC, SELFPAY ==
--- NOTE | 2018-11-04 13:17 | XR_ITS ---
XR knee LT 4V HISTORY: Left knee pain and swelling ITS.REASON: knee 4 view weight bearing ORDERING PHYSICIAN: Rhonda Kim MD PATIENT AGE: 62 years COMPARISON: 12/11/2016 FINDINGS: There are mild osteoarthritic changes of the medial compartment and patellofemoral joint with small osteophytes at the tibial spine. No fracture or dislocation. No lytic or blastic change. IMPRESSION: Mild osteoarthritis overall not significantly changed
[2018-11-04 14:13] LABS: Hemoglobin A1C 5.6 % (0.0-7.0)
== END ==
PROVIDERS: Physician Assistant; PCP Emergency Medicine; Visit Provider Orthopaedic Surgery
DX: R73.9 Hyperglycemia, unspecified (principal); M25.569 Pain in unspecified knee
CPT/HCPCS: 36415; 73564; 83036

== ENCOUNTER → 2019-07-24 14:00 | Outpatient (CLI) | payer OTHER, SELFPAY ==
--- NOTE | 2019-07-24 14:07 | XR_ITS ---
PROCEDURE: XR KNEE LT 4V CLINICAL INDICATION: knee pain COMPARISON: [id number] KNEE-3 VIEWS-LT from 12/11/2016 [id number] KNEE-4 OR 5 VIEWS-RT from 12/11/2016 FINDINGS: No fracture or dislocation. No lytic or blastic change. There is normal mineralization. There is mild patellofemoral and medial compartment osteoarthritis. Other findings:Vascular calcifications are noted. IMPRESSION: Osteoarthritis with no acute bone pathology. Dictated by: Jack Willingham 07/24/2019 17:12 Electronically signed by Jack Willingham in [place] 07/24/2019 17:12
--- NOTE | 2019-07-24 14:14 | XR_ITS ---
PROCEDURE: XR KNEE RT 4V CLINICAL INDICATION: knee pain COMPARISON: KNEE3L KNEE-3 VIEWS-LT from 12/11/2016 [id number] KNEE-4 OR 5 VIEWS-RT from 12/11/2016 FINDINGS: No fracture or dislocation. No lytic or blastic change. There is normal mineralization. There is a relatively high riding patella. There is mild medial compartment osteoarthritis. Other findings:None. IMPRESSION: No acute findings. Dictated by: Jack Willingham 07/24/2019 17:13 Electronically signed by Jack Willingham in [place] 07/24/2019 17:13
== END ==
PROVIDERS: PCP Emergency Medicine; Visit Provider Orthopaedic Surgery
DX: M17.11 Unilateral primary osteoarthritis, right knee (principal); M17.12 Unilateral primary osteoarthritis, left knee; M25.562 Pain in left knee; M25.561 Pain in right knee
CPT/HCPCS: 73564

== ENCOUNTER → 2019-08-15 13:34 | Outpatient (CLI) | payer OTHER, SELFPAY ==
[2019-08-15 13:55] LABS: Alanine Aminotransferase 41 U/L (12-78); Albumin Level 4.6 g/dl (3.5-5.0); Albumin/Globulin Ratio 1.8 (1.1-1.8); Alkaline Phosphatase 50 U/L (38-126); Anion Gap 12.4 mEq/L (5-15); Aspartate Amino Transferase 35 U/L (17-59); Bilirubin,Total 0.7 mg/dl (0.2-1.3); Blood Urea Nitrogen 21 mg/dl (9-20); Calcium 9.5 mg/dl (8.4-10.2); Carbon Dioxide 25 mmol/L (22.0-30.0); Chloride 106 mmol/L (98-107); Chol/HDL Ratio 2.3 (1-3.5); Cholesterol 136 mg/dl (140-200); Estimated Glomerular Filt Rate 98 ml/min (>60); GFR (African American) 119 ML/MIN (>60); Globulin 2.6 g/dL (1.3-3.2); Glucose 98 mg/dl (74-100); HDL Cholesterol 58 mg/dl (40-60); Potassium 4.4 mmoL/L (3.5-5.1); Sodium 139 mmol/L (136-145); Total Protein,Serum 7.2 g/dl (6.3-8.2); Triglycerides 104 mg/dl (30-150); VLDL Cholesterol 21 mg/dL (0-40)
[2019-08-15 14:05] LABS: Direct LDL Cholesterol 59.69 mg/dL (100-129)
[2019-08-15 14:11] LABS: Free T4 (Free Thyroxine) 0.73 ng/dl (0.78-2.19)
[2019-08-15 14:18] LABS: Basophils % 0.5 % (0.1-2.0); Eosinophils # 0.2 K/mm3 (0.0-0.4); Eosinophils % 2.3 % (0.1-12.0); Hematocrit 42.3 % (42.0-52.0); Hemoglobin 13.8 g/dL (14.1-18.0); Lymphocytes # 3.1 K/mm3 (0.7-4.5); Lymphocytes % 36.1 % (10-50); Mean Corpuscular HGB Conc 32.5 g/dL (31.8-35.4); Mean Corpuscular Hemoglobin 29.4 pg (27.0-31.2); Mean Corpuscular Volume 90.3 fl (80-94); Mean Platelet Volume 8.5 fl (7.4-10.4); Monocytes # 0.5 K/mm3 (0.1-1.0); Monocytes % 5.5 % (1.7-9.3); Neutrophils # 4.7 K/mm3 (1.8-7.8); Neutrophils % 55.6 % (37.0-80.0); Platelet Count 226 K/mm3 (142-424); Red Blood Count 4.69 M/mm3 (4.60-6.20); Red Cell Distribution Width 13.3 % (11.5-17.5); White Blood Count 8.5 K/mm3 (4.8-10.8)
[2019-08-15 14:25] LABS: Thyroid Stimulating Hormone 3.19 uIU/mL (0.465-4.68)
[2019-08-16 16:10] LABS: PSA, Free 0.31 ng/mL; Vitamin D 25 Hydroxy 19.5 ng/mL (30.0-100.0)
== END ==
PROVIDERS: Visit Provider Emergency Medicine
DX: E78.00 Pure hypercholesterolemia, unspecified (principal); I10 Essential (primary) hypertension; E55.9 Vitamin D deficiency, unspecified; R35.0 Frequency of micturition; Z80.42 Family history of malignant neoplasm of prostate
CPT/HCPCS: 80053; 80061; 82652; 84153; 84154; 84439; 84443; 85025

== ENCOUNTER → 2020-08-30 19:28 | Outpatient (CLI) | payer OTHER, SELFPAY ==
[2020-08-30 19:35] LABS: Basophils % 0.4 % (0.1-2.0); Eosinophils # 0.1 K/mm3 (0.0-0.4); Eosinophils % 1.4 % (0.1-12.0); Hematocrit 38.5 % (42.0-52.0); Hemoglobin 13.2 g/dL (14.1-18.0); Lymphocytes # 3.7 K/mm3 (0.7-4.5); Lymphocytes % 39.5 % (10-50); Mean Corpuscular HGB Conc 34.3 g/dL (31.8-35.4); Mean Corpuscular Hemoglobin 29.2 pg (27.0-31.2); Mean Corpuscular Volume 85.3 fl (80-94); Mean Platelet Volume 7.8 fl (7.4-10.4); Monocytes # 0.5 K/mm3 (0.1-1.0); Monocytes % 5.8 % (1.7-9.3); Neutrophils # 4.9 K/mm3 (1.8-7.8); Neutrophils % 52.7 % (37.0-80.0); Platelet Count 213 K/mm3 (142-424); Red Blood Count 4.52 M/mm3 (4.60-6.20); Red Cell Distribution Width 13.4 % (11.5-17.5); White Blood Count 9.3 K/mm3 (4.8-10.8)
[2020-08-30 19:47] LABS: Alanine Aminotransferase 31 U/L (12-78); Albumin Level 4.8 g/dl (3.5-5.0); Albumin/Globulin Ratio 1.9 (1.1-1.8); Alkaline Phosphatase 59 U/L (38-126); Anion Gap 14.2 mEq/L (5-15); Aspartate Amino Transferase 33 U/L (17-59); Bilirubin,Total 0.6 mg/dl (0.2-1.3); Blood Urea Nitrogen 21 mg/dl (9-20); Calcium 9.5 mg/dl (8.4-10.2); Carbon Dioxide 24 mmol/L (22.0-30.0); Chloride 104 mmol/L (98-107); Chol/HDL Ratio 2.8 (1-3.5); Cholesterol 142 mg/dl (140-200); Estimated Glomerular Filt Rate 75 ml/min (>60); GFR (African American) 91 ML/MIN (>60); Globulin 2.5 g/dL (1.3-3.2); Glucose 86 mg/dl (74-100); HDL Cholesterol 51 mg/dl (40-60); Potassium 4.2 mmoL/L (3.5-5.1); Sodium 138 mmol/L (136-145); Total Protein,Serum 7.3 g/dl (6.3-8.2); Triglycerides 223 mg/dl (30-150); VLDL Cholesterol 45 mg/dL (0-40)
[2020-08-30 19:59] LABS: Direct LDL Cholesterol 52.84 mg/dL (100-129)
[2020-08-30 20:04] LABS: 25-OH Vitamin D, Total 42.3 ng/mL (30-100); Free T4 (Free Thyroxine) 0.88 ng/dl (0.78-2.19)
[2020-08-30 20:14] LABS: Coronavirus 19 IgG Antibody Negative (Negative); Coronavirus 19 IgM Antibody Negative (Negative)
[2020-08-30 20:17] LABS: Prostate Specific Ag Screen 1.1 ng/ml (0.0-4.0)
[2020-08-30 20:20] LABS: Thyroid Stimulating Hormone 2.99 uIU/mL (0.465-4.68)
== END ==
PROVIDERS: Visit Provider Emergency Medicine
DX: R06.00 Dyspnea, unspecified (principal); Z20.822 Contact with and (suspected) exposure to COVID-19; E55.9 Vitamin D deficiency, unspecified; E78.00 Pure hypercholesterolemia, unspecified; I25.10 Atherosclerotic heart disease of native coronary artery without angina pectoris; Z12.5 Encounter for screening for malignant neoplasm of prostate
CPT/HCPCS: 80053; 80061; 82306; 84439; 84443; 85025; 86328; G0103

== ENCOUNTER → 2021-02-28 17:38 | Outpatient (CLI) | payer OTHER, SELFPAY ==
[2021-02-28 19:24] LABS: Amphetamine/Metha Screen,Urine Negative ng/ml (<1000); Barbiturates Screen,Urine Negative ng/ml (<200)
[2021-02-28 19:25] LABS: Benzodiazepines Screen,Urine Negative ng/ml (<200)
[2021-02-28 19:26] LABS: Cannabinoid Screen,Urine Positive ng/ml (<50); Cocaine Screen,Urine Negative ng/ml (<300)
[2021-02-28 19:27] LABS: Methadone Screen,Urine Negative ng/ml (<300)
[2021-02-28 19:28] LABS: Opiate Screen,Urine Negative ng/ml (<300)
[2021-02-28 19:29] LABS: Phencyclidine Screen,Urine Negative ng/ml (<25)
== END ==
PROVIDERS: Visit Provider Emergency Medicine
DX: M19.90 Unspecified osteoarthritis, unspecified site (principal)
CPT/HCPCS: 80305

== ENCOUNTER → 2021-03-06 16:55 | Outpatient (CLI) | payer OTHER, SELFPAY | PROVIDERS: PCP Emergency Medicine; Visit Provider Nurse Practitioner | DX: Z20.822 Contact with and (suspected) exposure to COVID-19 (principal) | CPT/HCPCS: C9803; U0003; U0005 ==

== ENCOUNTER → 2021-03-13 15:21 | Outpatient (CLI) | payer OTHER, SELFPAY | PROVIDERS: PCP Emergency Medicine; Visit Provider Nurse Practitioner | DX: Z20.822 Contact with and (suspected) exposure to COVID-19 (principal) | CPT/HCPCS: C9803; U0003; U0005 ==

== ENCOUNTER → 2021-03-28 08:33 | Outpatient (CLI) | payer OTHER, SELFPAY ==
--- NOTE | 2021-03-28 08:37 | XR_ITS ---
PROCEDURE: XR KNEE RT 4V CLINICAL INDICATION: BL knee pain COMPARISON: No exams were available for comparison FINDINGS: No fracture or dislocation. No lytic or blastic change. There is normal mineralization. There are mild osteoarthritic changes of the medial compartment and patellofemoral joint. There is 9 mm lateral subluxation the tibia on the upright weight-bearing view. There is generalized vascular calcification. Other findings:None. IMPRESSION: Mild osteoarthritic change Dictated by: Raymundo Rueda MD 03/28/2021 11:20 Raymundo Rueda MD in [place] 03/28/2021 11:20
--- NOTE | 2021-03-28 08:37 | XR_ITS ---
PROCEDURE: XR KNEE LT 4V CLINICAL INDICATION: BL hip pain COMPARISON: CR KNEE3L KNEE-3 VIEWS-LT from 12/11/2016 CR [id number] KNEE-4 OR 5 VIEWS-RT from 12/11/2016 CR XR KNEE RT 4V from 07/24/2019 CR XR KNEE LT 4V from 07/24/2019 FINDINGS: There are mild tricompartmental osteoarthritic changes. There is spurring of the medial tibial spine and of the intercondylar region the distal femur. There is minimal lateral subluxation of the tibia on the upright weight-bearing view by approximately 4 mm. No fracture or dislocation. No lytic or blastic change. Generalized vascular calcification. Other findings:None. IMPRESSION: No change mild tricompartmental osteoarthritis Dictated by: Raymundo Rueda MD 03/28/2021 11:23 Raymundo Rueda MD in [place] 03/28/2021 11:23
== END ==
PROVIDERS: PCP Emergency Medicine; Visit Provider Orthopaedic Surgery
DX: M25.561 Pain in right knee (principal); M25.562 Pain in left knee
CPT/HCPCS: 73564

== ENCOUNTER 2021-05-17 12:24 | Emergency (ER) | payer OTHER, SELFPAY ==
[2021-05-17 13:00] VITALS: BP 138/86; PULSE 73; RESP 19; TEMP 37.4; O2SAT 97; BMI 28.3
--- NOTE | 2021-05-17 13:21 | HMH.EDUTC ---
[facility] [place] Clinical Impression: Generalized body aches Disposition: Home, Self-Care Condition on Discharge: Good Instructions: COVID-19: Testing and Tracing Additional Instructions: covid swab was sent to lab, call later today for results. self isolate until test results are known to be negative No sign of a bacterial infection. Likely viral. Viruses can take 7-14 days to run their course. Nasal saline and bulb syringe or nose Janis to remove nasal drainage to help with nasal congestion. Hard to eat, drink, sleep with nasal congestion so important to keep this cleaned out. Monitor temp. Tylenol or Motrin as needed for pain or fever Encourage fluids, water, Gatorade, Powerade, Pedialyte if /toddler/child Warm salt water gargles Warm fluids Sore throat lozenges Sleep elevated Humidifier/vaporizer Follow-up immediately for new or worsening symptoms or no noticeable improvement over the next 48-72 hours. Referrals: Vinay Valente MD [Primary Care Provider] - Time of Disposition: 13:23 Medical Decision Making - Andrea Inquiry Pt receiving controlled substance: No Vital Signs: 05/17/21 13:00 Temperature 99.4 F Temperature Source Oral Pulse Rate [Right Brachial] 73 Respiratory Rate 19 Blood Pressure [Right Arm] 138/86 Blood Pressure Mean [Right Arm] 103 Blood Pressure Source [Right Arm] Automatic Cuff Blood Pressure Position [Right Arm] Sitting 02 Sat by Pulse Oximetry 97 Oxygen Delivery Method Room Air Orders (Tests/Meds): ORDERS Category Date Time Status Full Resp Panel w/COVID ([facility]) Routine Lab 05/17/21 13:03 [place] [facility] [place] - General Chief complaint: [facility] Stated complaint: body aches Time Seen by Provider: 05/17/21 13:21 Mode of Arrival: Ambulatory Source of Information: Patient Limitations: No Limitations Description of Symptoms (Recalled from Triage Doc. by RN): PATIENT C/O BODY ACHES X 2 DAYS. DENIES ANY OTHER SYMPTOMS HEENT Symptoms (Recalled from RN notes): No Resp Symptoms (Recalled from RN notes): No Skin Symptoms (Recalled from RN notes): No MS Symptoms (Recalled from RN notes): Yes Functional Status (Recalled from RN notes): WNL - History of Present Illness Provider Complaint: 65 yr old male presnts for body aches for 2 days. pt states no other symptoms - Related Data Home Medications Medication Instructions Recorded Confirmed aspirin 81 mg tablet,delayed 81 mg PO DAILY tab 08/26/17 03/28/21 release Previous Rx's Medication Instructions Recorded losartan 100 mg tablet 100 mg PO DAILY #90 tab 09/12/20 rosuvastatin 20 mg tablet 20 mg PO DAILY #90 tab 02/27/21 gabapentin 300 mg capsule 300 mg PO TID #90 cap 02/28/21 clopidogrel 75 mg tablet See Rx Instructions .ROUTE 03/18/21 .COMPLEX #90 tab Allergies Allergy/AdvReac Type Severity Reaction Status Date / Time No Known Allergies Allergy Verified 03/28/21 09:39 - Worker's Comp Is this a Worker's Comp case?: No [facility] History - Hepatitis A Screen Drug use history?: No High risk sexual behaviors?: No History of sexually transmitted infection?: No Currently employed?: No Childcare worker?: No Do you have indoor plumbing?: Yes Do you have electricity?: Yes Attestation statement:: This patient has been screened for Hepatitis A risk factors. I have reviewed the patient's past medical history: Yes Medical History: Reports:: Coronary Artery Disease, Gastroesophageal Reflux Disease(GERD), Heart Murmur, Hyperlipidemia, Hypertension Denies:: Cancer, Diabetes Mellitus Type 1, Diabetes Mellitus Type 2, MRSA Other Medical History: Reports: Arthritis Comment: Diverticulitis Other Surgeries: Yes: Appendectomy, Cardiac Catheterization, Colonoscopy, Coronary Stent, Other Amputation: No Fractures: No - Social History Smoking Status: Former smoker Tobacco Type: cigarettes Alcohol Intake: former Alcohol Intake Frequency:: holidays/special occasions only Substance Use
[2021-05-17 13:26] VITALS: BP 138/86; PULSE 73; RESP 19; TEMP 37.4; O2SAT 97
[2021-05-17 14:34] LABS: Adenovirus,PCR Not Detected (NotDetected); Bordetella Pertussis Not Detected (NotDetected); Chlamydophila Pneumoniae, PCR Not Detected (NotDetected); Coronavirus 229E Not Detected (NotDetected); Coronavirus NL63 Not Detected (NotDetected); Coronavirus OC43 Not Detected (NotDetected); Coronovirus HKU1,PCR Not Detected (NotDetected); Human Metapneumovirus Not Detected (NotDetected); Influenza A, PCR Not Detected (NotDetected); Influenza AH1, 2009 Not Detected (NotDetected); Influenza AH1, PCR Not Detected (NotDetected); Influenza AH3,PCR Not Detected (NotDetected); Influenza B, PCR Not Detected (NotDetected); Mycoplasma Pneumoniae, PCR Not Detected (NotDetected); Parainfluenza 1, PCR Not Detected (NotDetected); Parainfluenza 2, PCR Not Detected (NotDetected); Parainfluenza 3, PCR Not Detected (NotDetected); Parainfluenza 4, PCR Not Detected (NotDetected); Respiratory Syncytial Virus Not Detected (NotDetected); Rhinovirus/Enterovirus Not Detected (NotDetected)
[2021-05-17 18:57] LABS: Coronavirus 19, PCR Detected (NotDetected)
== END 2021-05-17 13:29 | disposition home or self-care (01) ==
PROVIDERS: Emergency Provider Nurse Practitioner Family; PCP Emergency Medicine
DX: M79.18 Myalgia, other site (principal); I25.10 Atherosclerotic heart disease of native coronary artery without angina pectoris; K21.9 Gastro-esophageal reflux disease without esophagitis; I10 Essential (primary) hypertension; E78.5 Hyperlipidemia, unspecified; R01.1 Cardiac murmur, unspecified; Z87.891 Personal history of nicotine dependence; Z79.899 Other long term (current) drug therapy
CPT/HCPCS: 87581; 87632; 87798; 99202; C9803; G0463; U0003; U0005

== ENCOUNTER → 2022-06-12 18:04 | Outpatient (CLI) | payer OTHER, SELFPAY ==
[2022-06-12 15:39] LABS: Basophils # 0.1 K/mm3 (0-0.2); Basophils % 0.7 % (0.1-2.0); Eosinophils # 0.1 K/mm3 (0.0-0.4); Eosinophils % 1.6 % (0.1-12.0); Hematocrit 40.5 % (42.0-52.0); Hemoglobin 13.6 g/dL (14.1-18.0); Lymphocytes # 2.3 K/mm3 (0.7-4.5); Lymphocytes % 35.7 % (10-50); Mean Corpuscular HGB Conc 33.7 g/dL (31.8-35.4); Mean Corpuscular Volume 85.9 fl (80-94); Mean Platelet Volume 8.5 fl (7.4-10.4); Monocytes # 0.3 K/mm3 (0.1-1.0); Monocytes % 4.3 % (1.7-9.3); Neutrophils # 3.8 K/mm3 (1.8-7.8); Neutrophils % 57.8 % (37.0-80.0); Platelet Count 247 K/mm3 (142-424); Red Blood Count 4.71 M/mm3 (4.60-6.20); Red Cell Distribution Width 13.5 % (11.5-17.5); White Blood Count 6.5 K/mm3 (4.8-10.8)
[2022-06-12 15:48] LABS: Alanine Aminotransferase 27 U/L (12-78); Albumin Level 4.8 g/dl (3.5-5.0); Albumin/Globulin Ratio 1.8 (1.1-1.8); Alkaline Phosphatase 51 U/L (38-126); Anion Gap 11.7 mEq/L (5-15); Aspartate Amino Transferase 27 U/L (17-59); Bilirubin,Total 0.9 mg/dl (0.2-1.3); Blood Urea Nitrogen 21 mg/dl (9-20); Calcium 9.2 mg/dl (8.4-10.2); Carbon Dioxide 26 mmol/L (22.0-30.0); Chloride 107 mmol/L (98-107); Chol/HDL Ratio 2.8 (1-3.5); Cholesterol 116 mg/dl (140-200); Estimated Glomerular Filt Rate 75 ml/min (>60); GFR (African American) 91 ML/MIN (>60); Globulin 2.6 g/dL (1.3-3.2); Glucose 144 mg/dl (74-100); HDL Cholesterol 42 mg/dl (40-60); Potassium 3.7 mmoL/L (3.5-5.1); Sodium 141 mmol/L (136-145); Total Protein,Serum 7.4 g/dl (6.3-8.2); Triglycerides 241 mg/dl (30-150); VLDL Cholesterol 48 mg/dL (0-40)
[2022-06-12 15:59] LABS: Direct LDL Cholesterol 44.84 mg/dL (100-129)
[2022-06-12 16:18] LABS: Prostate Specific Ag Screen 1.2 ng/ml (0.0-4.0); Thyroid Stimulating Hormone 1.35 uIU/mL (0.465-4.68)
[2022-06-12 17:49] LABS: 25-OH Vitamin D, Total 17.9 ng/mL (30-100)
== END ==
LOC: LAB.DROPOF 18:06
PROVIDERS: PCP Emergency Medicine; Visit Provider Emergency Medicine
DX: I25.10 Atherosclerotic heart disease of native coronary artery without angina pectoris (principal); I10 Essential (primary) hypertension; M25.562 Pain in left knee; E55.9 Vitamin D deficiency, unspecified; E66.3 Overweight; Z68.29 Body mass index [BMI] 29.0-29.9, adult; Z12.5 Encounter for screening for malignant neoplasm of prostate
CPT/HCPCS: 80053; 80061; 82306; 84439; 84443; 85025; G0103

== ENCOUNTER → 2022-12-21 14:03 | Outpatient (CLI) | payer OTHER, SELFPAY ==
--- NOTE | 2022-12-21 14:03 | MR_ITS ---
FINAL REPORT TECHNIQUE: Multiplanar and multisequence imaging of the cervical spine was obtained. CLINICAL HISTORY: cervical radicular pain. BILATERAL ARM PAIN, NUMBNESS AND TINGLING. NO INJURY OR TRAUMA. FINDINGS: Alignment is normal. Vertebral body height is preserved. Signal intensity within the substance of the spinal cord is normal. Bone marrow signal intensity is within normal limits. No acute paraspinal abnormality. C2/3: There is no focal disc herniation, central stenosis or neural foraminal narrowing. C3/4: There is no focal disc herniation, central stenosis or neural foraminal narrowing. C4/5: There is no focal disc herniation, central stenosis or neural foraminal narrowing. C5/6: Annular disc bulge with degenerative endplate changes and facet osteoarthropathy. There is moderate right and mild to moderate left neuroforaminal narrowing. C6/7: Annular disc bulge with degenerative endplate changes and facet osteoarthropathy. There is mild left neuroforaminal narrowing. C7/T1: There is no focal disc herniation, central stenosis or neural foraminal narrowing. IMPRESSION: Degenerative disc disease at C5-6 and C6-7 with mild to moderate neuroforaminal narrowing as above. Reviewed, Interpreted and Dictated by Yesika Fishman MD Transcribed by Ewelina Villarreal Authenticated and [facility]
== END ==
LOC: RAD 14:03
PROVIDERS: PCP Emergency Medicine; Visit Provider Emergency Medicine
DX: M54.12 Radiculopathy, cervical region (principal)
CPT/HCPCS: 72141; 76376

== ENCOUNTER → 2022-12-31 10:20 | Outpatient (POV) | payer OTHER, SELFPAY ==
[2022-12-31 11:02] VITALS: BP 115/94; PULSE 69; RESP 20; O2SAT 94; BMI 27.9
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
== END ==
PROVIDERS: PCP Emergency Medicine; Visit Provider Nurse Practitioner Family
DX: M50.10 Cervical disc disorder with radiculopathy, unspecified cervical region (principal); M25.511 Pain in right shoulder; M25.512 Pain in left shoulder
CPT/HCPCS: 99202; G0463

== ENCOUNTER → 2022-12-31 11:17 | Outpatient (CLI) | payer OTHER, MEDICARE, SELFPAY ==
--- NOTE | 2022-12-31 11:22 | XR_ITS ---
FINAL REPORT CLINICAL HISTORY: JUAN FRANCISCO SHOULDER PAIN FINDINGS: Two views show no evidence of an acute, displaced fracture or dislocation of the visualized bony architecture. Mild degenerative joint disease is present of the glenohumeral and acromioclavicular joints. IMPRESSION: Degenerative changes. No acute bony abnormality. Reviewed, Interpreted and Dictated by Jennifer Vazquez MD Transcribed by Ewelina Villarreal Authenticated and [facility]
--- NOTE | 2022-12-31 11:22 | XR_ITS ---
FINAL REPORT CLINICAL HISTORY: JUAN FRANCISCO SHOULDER PAIN FINDINGS: Two views show no evidence of an acute, displaced fracture or dislocation of the visualized bony architecture. Mild degenerative joint disease is present of the glenohumeral and acromioclavicular joints. IMPRESSION: Degenerative changes. No acute bony abnormality. Reviewed, Interpreted and Dictated by Jennifer Vazquez MD Transcribed by Ewelina Villarreal Authenticated and [facility]
== END ==
PROVIDERS: PCP Emergency Medicine; Visit Provider Anesthesiology
DX: M25.511 Pain in right shoulder (principal); M25.512 Pain in left shoulder
CPT/HCPCS: 73030

== ENCOUNTER → 2023-01-15 12:47 | Outpatient (CLI) | payer OTHER, MEDICARE, SELFPAY ==
--- NOTE | 2023-01-15 | MR_ITS ---
FINAL REPORT CLINICAL HISTORY: .BILATERAL ARM PAIN. LIMITED ROM. NO INJURY OR TRAUMA. FINDINGS: Multiplanar MR imaging of the left shoulder was performed without contrast. Motion artifact is seen on all images which significantly limits exam sensitivity. There is abnormal appearance of the distal supraspinatus and infraspinatus tendons consistent with partial tears which are difficult to characterize secondary to motion artifact. These favored represent intrasubstance tears, less than 50%. There is no definite full-thickness tear. There is mild AC joint arthrosis. There are multiple subchondral cyst in the superior humeral head. There is no definite labral tear. IMPRESSION: Significantly limited exam secondary to motion artifact with probable intrasubstance tears of the supraspinatus and infraspinatus tendons, less than 50%. Reviewed, Interpreted and Dictated by Amilcar Alvarez III, MD Transcribed by Ewelina Villarreal Authenticated and . [facility]
--- NOTE | 2023-01-15 | MR_ITS ---
FINAL REPORT CLINICAL HISTORY: BILATERAL SHOULDER PAIN. LIMITED ROM. NO INJURY OR TRAUMA. FINDINGS: Multiplanar MR imaging of the right shoulder was performed without contrast. Motion artifact is identified on many of the images. There is a complete tear of the distal supraspinatus tendon. Tendon is retracted to the medial humeral head. There is a near complete tear of the distal infraspinatus tendon. A small portion of the posterior tendon is probably intact. There is moderate supraspinatus and mild infraspinatus muscle atrophy. There is mild AC joint arthrosis. A moderate amount of fluid is seen in the subacromial/subdeltoid bursa. The labrum is not well seen but is probably intact. The long head of the biceps tendon is intact. Moderate glenohumeral joint effusion is seen. There is no evidence of fracture or dislocation. There is no evidence of soft tissue mass. IMPRESSION: Complete tear of the supraspinatus tendon with moderate muscle atrophy. Near complete tear of the infraspinatus tendon with mild muscle atrophy. Reviewed, Interpreted and Dictated by Amilcar Alvarez III, MD Transcribed by Zoya Altman Authenticated and . [facility]
== END ==
LOC: RAD 12:47
PROVIDERS: PCP Emergency Medicine; Visit Provider Nurse Practitioner Family
DX: M25.512 Pain in left shoulder (principal); M25.511 Pain in right shoulder
CPT/HCPCS: 73221

== ENCOUNTER → 2023-01-25 12:44 | Outpatient (CLI) | payer OTHER, MEDICARE, SELFPAY ==
--- NOTE | 2023-01-25 12:48 | CA_ITS ---
APPROVED REPORT EXAM: Comprehensive 2D, Doppler, and color-flow Echocardiogram Criminal Investigative Agent: Mohini Wright CRT Ht: 5 ft 10 in Wt: 188lbs BSA: 2.03 BP: 138/80 mmHg Indications: Murmur, Hyperlipidemia, Hypertension/HDD, ex smoker 2D Dimensions LVOT 1.68 cm (M/F) 1.5-2.5 LA Volume 52.00 mL LA Volume Index 25.62 mL/m2 (M/F) 16-34 M-Mode Dimensions RVDd 2.68 cm (0.9-2.6) LA Diam 4.07 cm (1.9-4.0) LVDd 4.18 cm (3.5-5.7) Ao Diam 3.89 cm (2.0-3.7) LVDs 2.18 cm (3.5-5.7) IVSd 1.68 cm (0.6-1.1) PWd 1.04 cm (0.6-1.1) EF (Teich) 79.70% FS 47.80% EDV (Teich) 77.70 mL ESV (Teich) 15.80 mL LV Diastology E Decel Time 220.00 (160-240 msec) E/A Ratio 0.83 MED E' 7.30 (< 7 cm/sec) MED A' 10.30 cm/s E'/MED E' Ratio 12.59 (>14) LAT E' 7.90 (<10 cm/sec) LAT A' 10.70 cm/s E/LAT E' Ratio 11.63 (>14) Aortic Valve LVOT Max 151.00 (70-110 cm/s) LVOT VTI 33.59 cm AoV Peak Umberto. 253.00 (50-130 cm/s) AO Peak GR. 25.80 mmHg AO Mean GR. 13.30 (<5 mmHg) AO VTI 52.78 (18-25 cm) KENNETH (VTI) 1.41 (2.5-4.5 cm2) Mitral Valve MV A Velocity 111.00 (40-130 cm/s) E/A Ratio 0.83 MV Decel. Time 220.00 (160-240 ms) Pulmonary Valve PV Peak Velocity 95.00 (50-150 cm/s) Tricuspid Valve TR P. Velocity 272.00 cm/s RAP Estimate 10.00 mmHg RVSP 39.70 mmHg Left Ventricle The left ventricle is normal size. The left ventricular systolic function is normal. The left ventricular ejection fraction is within the normal range. There is increased LV wall thickness. There is normal LV segmental wall motion. LVEF is 55%. Right Ventricle The right ventricle is normal size. The right ventricular systolic function is normal. Atria The left atrium size is normal. The right atrium size is normal. There is no Doppler evidene of interatrial shunt. Aortic Valve The aortic valve is moderately thickened. Mild to moderate aortic stenosis is present. KENNETH by continuity equation is 1.7 cm2. Mean AV gradient is 16 mmHg, peak AV gradient is 32 mmHg. Peak velocity is 2.9 m/s. SVi=49 ml/m2. DI=0.6 (LVOT diameter = 1.9 cm, LVOT VTI 34.3 cm, AV VTI=57.2 cm) No aortic regurgitation is present. Mitral Valve The mitral valve is mildly thickened. No evidence of mitral valve stenosis. Mild mitral regurgitation. Tricuspid Valve The tricuspid valve leaflets are thin and pliable. Mild tricuspid regurgitation. RVSP is 30-35 mmHg. Pulmonic Valve The pulmonary valve is normal in structure. Trace pulmonic regurgitation. Great Vessels The aortic root is normal in size. The ascending aorta is normal in size. IVC is normal in size and collapses >50% with inspiration. Pericardium There is no pericardial effusion. Other Information Study Quality: Fair Conclusion Normal biventricular systolic function. Moderately thickened AV leaflets. Mild to moderate aortic stenosis is present. KENNETH by continuity equation is 1.7 cm2. Mean AV gradient is 16 mmHg, peak AV gradient is 32 mmHg. Peak velocity is 2.9 m/s. SVi=49 ml/m2. DI=0.6 (LVOT diameter = 1.9 cm, LVOT VTI 34.3 cm, AV VTI=57.2 cm) Mild MR Mild TR Elevated RVSP 30-35 mmHg. Electronically signed by : Hortensia Solomon, 01/26/2023 15:30:13
--- NOTE | 2023-01-25 12:48 | CA_ITS ---
FINAL REPORT TECHNIQUE: Real-time imaging was performed of the extracranial carotid arteries in transverse and longitudinal planes, with color duplex evaluation of blood flow velocity. Spectral analysis was performed. The cervical vertebral arteries were also examined. CLINICAL HISTORY: BRUITS,HTN,HLD,EXSMOKER COMPARISON: None FINDINGS: NASCET technique is utilized for stenosis evaluation. Right carotid system (centimeters/second): CCA: 127 ICA: 88 ECA: 56.7 Vertebral artery: Antegrade ICA/CCA ratio: 1.36 Mild plaque is identified at the bifurcation. Left carotid system (centimeters/second): CCA: 116 ICA: 121 ECA: 74.2 Vertebral artery: Antegrade ICA/CCA ratio: 1.5 Mild plaque is identified at the bifurcation. IMPRESSION: 0-50% right ICA stenosis. 0-50% left ICA stenosis. Antegrade flow both vertebral arteries. Reviewed, Interpreted and Dictated by Gilmar Day MD Transcribed by Jessie Benson Authenticated and [facility]
== END ==
PROVIDERS: PCP Emergency Medicine; Visit Provider Internal Medicine
DX: R09.89 Other specified symptoms and signs involving the circulatory and respiratory systems (principal); I25.10 Atherosclerotic heart disease of native coronary artery without angina pectoris; I10 Essential (primary) hypertension; I27.20 Pulmonary hypertension, unspecified; E78.00 Pure hypercholesterolemia, unspecified; G47.33 Obstructive sleep apnea (adult) (pediatric); Z86.79 Personal history of other diseases of the circulatory system; Z87.891 Personal history of nicotine dependence
CPT/HCPCS: 93306; 93880

== ENCOUNTER → 2023-01-28 11:48 | Outpatient (POV) | payer OTHER, MEDICARE, SELFPAY ==
--- NOTE | 2023-01-28 11:57 | EXP.PAIN.SOA ---
[facility] Pain Management SOAP Note Subjective:: Patient is a pleasant 67-year-old male who presents today for MRI follow-up. We are currently treating the patient for bilateral shoulder pain, degenerative disc disease of cervical spine with cervical radiculopathy symptoms. Today he rates his pain at a 1 out of 10. Patient states that he has not had any new injury or trauma from her last visit. Patient does describe his pain as more of an achy sensation that is worse at night. Patient does state that he has limited range of motion in both of his shoulders. 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 He does state that this is much better than how it was last month and that he can tolerate it at this level. He does state today that he is having a lot more pain in his left knee and that this is a chronic issue. He does state this is a throbbing, achy sensation and often he feels like his leg is going to give out due to the pain. Patient does state that he previously had injections into this joint over at Dr. Sullivan office until she left. He states these injections would help for only a couple of weeks and then he ended up having another provider in this office who made his pain worse. Patient is not on any scheduled medications. His Andrea is [phone]. Its been reviewed and appropriate. Review of Systems: General: No recent weight changes, no fever, no sleep disturbances Respiratory: No cough, no shortness of air, no recurring pulmonary infections Cardiovascular/peripheral vascular: No chest pain, no palpitations, no edema, no shortness of breath Gastrointestinal: No new onset incontinence, normal bowel movements reported Genitourinary: No new onset incontinence Musculoskeletal: Left knee pain Psychiatric: [Normal mood/affect] Neurological: [Denies weakness in extremities], [denies balance issues] Objective:: Physical Exam: General: Alert and oriented x3, no acute distress, pleasant and cooperative Lungs: Respirations even and unlabored, symmetrical chest expansion Eyes: PERRL Musculoskeletal: Flexion and extension of left knee somewhat guarded secondary to pain, [antalgic gait noted] Neurological: Speech clear, no gross sensory deficit FINDINGS: Multiplanar MR imaging of the left shoulder was performed without contrast. Motion artifact is seen on all images which significantly limits exam sensitivity. There is abnormal appearance of the distal supraspinatus and infraspinatus tendons consistent with partial tears which are difficult to characterize secondary to motion artifact. These favored represent intrasubstance tears, less than 50%. There is no definite full-thickness tear. There is mild AC joint arthrosis. There are multiple subchondral cyst in the superior humeral head. There is no definite labral tear. IMPRESSION: Significantly limited exam secondary to motion artifact with probable intrasubstance tears of the supraspinatus and infraspinatus tendons, less than 50%. Reviewed, Interpreted and Dictated by Amilcar Alvarez III, MD Transcribed by Ewelina Villarreal Authenticated and . [facility] FINDINGS: Multiplanar MR imaging of the right shoulder was performed without contrast. Motion artifact is identified on many of the images. There is a complete tear of the distal supraspinatus tendon. Tendon is retracted to the medial humeral head. There is a near complete tear of the distal infraspinatus tendon. A small portion of the posterior tendon is probably intact. There is moderate supraspinatus and mild infraspinatus muscle atrophy. There is mild AC joint arthrosis. A moderate amount of fluid is seen in the subacromial/subdeltoid bursa. The labrum is not well seen but is probably intact. The long head of the biceps tendon is intact. Moderate glenohumeral joint effusion is seen. There is no evidence of fract
[2023-01-28 12:26] VITALS: BP 129/90; PULSE 65; RESP 19; O2SAT 96; BMI 27.2
== END ==
PROVIDERS: PCP Emergency Medicine; Visit Provider Nurse Practitioner Family
DX: M25.511 Pain in right shoulder (principal); M25.512 Pain in left shoulder; M50.10 Cervical disc disorder with radiculopathy, unspecified cervical region; M25.562 Pain in left knee
CPT/HCPCS: 99212; G0463

== ENCOUNTER 2024-02-14 08:51 | Outpatient (CLI) | payer MEDICARE, SELFPAY ==
--- NOTE | 2024-02-14 08:58 | CA_ITS ---
APPROVED REPORT EXAM: Comprehensive 2D, Doppler, and color-flow Echocardiogram Ekg Monitor: Violeta Arevalo RDCS Ht: 5 ft 10 in Wt: 196lbs BSA: 2.07 BP: 143/78 mmHg Indications: CAD,MURMUR, M-Mode Dimensions RVDd 2.38 cm (0.9-2.6) LA Diam 2.79 cm (1.9-4.0) LVDd 5.06 cm (3.5-5.7) LVDs 3.45 cm (3.5-5.7) IVSd 0.80 cm (0.6-1.1) PWd 0.77 cm (0.6-1.1) EF (Teich) 59.60% FS 31.80% EDV (Teich) 121.60 mL TAPSE 2.42 (<1.7) ESV (Teich) 49.10 mL LV Diastology E Decel Time 217 (160-240 msec) E/A Ratio 0.8 Aortic Valve KENNETH Index 0.66 cm2/m2 AoV Peak Umberto. 223.0 (50-130 cm/s) AO Peak GR. 19.90 mmHg AO Mean GR. 9.80 (<5 mmHg) AO VTI 46.1 (18-25 cm) KENNETH (VTI) 1.39 (2.5-4.5 cm2) Mitral Valve MV E Max Umberto. 81.0 (40-130 cm/s) MV A Velocity 107.0 (40-130 cm/s) E/A Ratio 0.75 MV PHT 63.0 ms Tricuspid Valve TR P. Velocity 240.00 cm/s RAP Estimate 10.00 mmHg RVSP 33.10 mmHg Left Ventricle The left ventricle is normal size. The left ventricular systolic function is normal. The left ventricular ejection fraction is within the normal range. There is increased LV wall thickness. There is normal LV segmental wall motion. Transmitral Doppler flow pattern suggests impaired LV relaxation. LVEF is 55%. Right Ventricle Right ventricle is mildly dilated. The right ventricular systolic function is normal. Atria Left atrium is mildly dilated. Right atrium is mildly dilated. There is no Doppler evidence of interatrial shunt. Aortic Valve The aortic valve is mildly thickened. Mild to moderate aortic stenosis. KENNETH by continuity equation is 1.5 cm2. Mean AV gradient 10 mmHg. Max AV gradient 20 mmHg. Peak velocity 2.6 m/s. Trace aortic regurgitation is present. Mitral Valve The mitral valve is mildly thickened. No evidence of mitral valve stenosis. Mild mitral regurgitation. Tricuspid Valve Tricuspid valve is grossly normal in structure and function. Trace tricuspid regurgitation. RVSP is 20-25 mmHg. Pulmonic Valve The pulmonary valve is normal in structure. Trace pulmonic regurgitation. Great Vessels The aortic root is normal in size. The ascending aorta is not well visualized. IVC is normal in size and collapses >50% with inspiration. Pericardium There is no pericardial effusion. Other Information Study Quality: Fair Conclusion Normal biventricular systolic function. Mild RV dilation. Mild biatrial dilation. Mild MR. Mild to moderate aortic stenosis (KENNETH by continuity equation is 1.5 cm2. Mean AV gradient 10 mmHg. Max AV gradient 20 mmHg. Peak velocity 2.6 m/s). Compared to prior study from 2022, there are overall no significant changes. Electronically signed by : Hortensia Solomon MD 02/20/2024 11:55:00
== END 2024-02-14 23:59 | disposition home or self-care (01) ==
LOC: RT 08:54
PROVIDERS: Visit Provider Physician Assistant
DX: I25.10 Atherosclerotic heart disease of native coronary artery without angina pectoris (principal); E78.00 Pure hypercholesterolemia, unspecified; I10 Essential (primary) hypertension; Z87.891 Personal history of nicotine dependence; Z86.79 Personal history of other diseases of the circulatory system
CPT/HCPCS: 93306

== ENCOUNTER 2024-03-27 15:31 | Outpatient (CLI) | payer MEDICARE, SELFPAY ==
--- NOTE | 2024-03-27 | XR_ITS ---
PROCEDURE INFORMATION: Exam: XR Left Humerus Exam date and time: 03/27/2024 3:38 PM Age: 68 years old Clinical indication: Pain; Upper arm; Left TECHNIQUE: Imaging protocol: Radiologic exam of the left humerus. Views: 2 or more views. COMPARISON: CR XR SHOULDER LT MIN 2V 03/27/2024 3:38 PM FINDINGS: Bones/joints: Normal. No acute fracture identified. Soft tissues: Normal. IMPRESSION: No acute findings.
--- NOTE | 2024-03-27 | XR_ITS ---
PROCEDURE INFORMATION: Exam: XR Left Elbow Exam date and time: 03/27/2024 3:38 PM Age: 68 years old Clinical indication: Pain; Elbow; Left; Additional info: Pain x 2 months TECHNIQUE: Imaging protocol: Radiologic exam of the left elbow. Views: 3 or more views. COMPARISON: CR XR HUMERUS LT 03/27/2024 3:38 PM FINDINGS: Bones/joints: Normal. No acute fracture identified. Soft tissues: Normal. IMPRESSION: No acute findings.
--- NOTE | 2024-03-27 | XR_ITS ---
PROCEDURE INFORMATION: Exam: XR Left Shoulder Exam date and time: 03/27/2024 3:38 PM Age: 68 years old Clinical indication: Pain; Shoulder; Left; Additional info: Shoulder acute pain x 2 months TECHNIQUE: Imaging protocol: Radiologic exam of the left shoulder. Views: 2 or more views. COMPARISON: MR SHOULDER LT WO CON 01/15/2023 12:59 PM FINDINGS: Bones/joints: Normal. Mild degenerative changes of the AC joint. Soft tissues: Normal. IMPRESSION: No acute findings.
== END 2024-03-27 23:59 | disposition home or self-care (01) ==
LOC: RAD 15:32
PROVIDERS: PCP Family Medicine; Visit Provider Nurse Practitioner
DX: M25.512 Pain in left shoulder (principal); M25.522 Pain in left elbow; M79.622 Pain in left upper arm
CPT/HCPCS: 73030; 73060; 73080

== ENCOUNTER 2024-05-26 14:58 | Outpatient (CLI) | payer MEDICARE, SELFPAY ==
--- NOTE | 2024-05-26 15:01 | MR_ITS ---
FINAL REPORT TECHNIQUE: Multiplanar MR without gadolinium enhancement CLINICAL HISTORY: LEFT SHOULDER PAIN COMPARISON: 01/15/2023 FINDINGS: Marrow signal: There are mild subchondral cystic changes in the posterior humeral head, similar to the prior exam, likely at the insertion of the rotator cuff tendons. Glenohumeral joint: A moderate joint effusion without significant degenerative change. Acromioclavicular joint: No evidence of impingement. There is minimal fluid in the subacromial/subdeltoid bursa, likely mild bursitis. Rotator cuff apparatus: There is a high-grade partial tear of the distal infraspinatus tendon, and a mild partial tear of the distal supraspinatus tendon. These findings are stable to minimally worse when compared to the prior MRI. Labrum: No definite tear identified. Biceps tendon: Intact IMPRESSION: Moderate joint effusion, slightly larger than noted on the prior MRI. Partial tears of the infraspinatus and supraspinatus tendons, stable to minimally larger than compared to the prior exam. Reviewed, Interpreted and Dictated by Jennifer Vazquez MD Transcribed by Jessie Benson Authenticated and . [facility]
== END 2024-05-26 23:59 | disposition home or self-care (01) ==
LOC: RAD 14:59
PROVIDERS: PCP Family Medicine; Visit Provider Nurse Practitioner
DX: M75.22 Bicipital tendinitis, left shoulder (principal)
CPT/HCPCS: 73221